=== PATIENT | female | born 1995 | race Caucasian/White ===

== ENCOUNTER 2021-10-27 09:16 | Emergency (ER) | payer MEDICAID, SELFPAY ==
[2021-10-27 10:21] VITALS: BP 136/80; PULSE 70; RESP 17; TEMP 36.1; O2SAT 98; BMI 35.2
[2021-10-27 10:53] LABS: MANUAL DIFF FLAG NO
[2021-10-27 10:54] LABS: Basophils Percent Auto 0.4 % (0-2); Eosinophils Absolute Auto 0.1 X10*3/uL (0.0-0.4); Eosinophils Percent Auto 2.7 % (0-4); Hematocrit 37.7 % (37.0-47.0); Hemoglobin 12.4 g/dl (12.0-16.0); Imm Gran Abs Auto 0.01 X10*3/uL (0.00-0.03); Imm Gran Pct Auto 0.2 % (0.0-0.4); Lymphocytes Absolute Auto 1.5 X10*3/uL (1.2-4.9); Lymphocytes Percent Auto 29.1 % (20-40); Mean Corpuscular HGB Conc 32.9 g/dl (31.0-35.0); Mean Corpuscular Hemoglobin 27.9 pg (27.0-33.0); Mean Corpuscular Volume 84.7 fL (80.0-98.0); Mean Platelet Volume 12.2 fL (9.4-12.3); Monocytes Absolute Auto 0.4 X10*3/uL (0.1-1.2); Monocytes Percent Auto 8.2 % (2-11); Neutrophils Percent Auto 59.4 % (45-73); Platelet Count 164 X10*3/uL (160-400); Red Blood Count 4.45 X10*6/uL (4.20-5.50); Red Cell Distribution Width 12.5 % (11.0-16.0); White Blood Count 5.1 X10*3/uL (4.8-10.8)
[2021-10-27 10:55] LABS: Appearance Urine CLEAR; Glucose Urine UA NEG (NEG); Leukocyte Esterase Urine 1+ (NEG); Nitrite Urine NEG (NEG); PH 6.5 (5.0-8.0); UACC Culture Trigger YES; Urine Blood TRACE (NEG); Urine Ketones NEG (NEG); Urine Protein NEG (NEG-TRACE)
[2021-10-27 10:56] LABS: UPreg QC Valid YES; Urine Pregnancy NEGATIVE (NEGATIVE)
[2021-10-27 10:57] LABS: Color Urine YELLOW
[2021-10-27 11:03] LABS: Bacteria Urine 2+ /LPF; Squamous Epithelial Cell Urine 3+ /LPF
[2021-10-27 11:04] LABS: RBC Urine 0-2 /HPF (0)
[2021-10-27 11:11] LABS: Anion Gap 9 (12-20); Blood Urea Nitrogen 5 mg/dL (9-16); Calcium 8.8 mg/dL (8.4-10.2); Carbon Dioxide 29 mmol/L (22-29); Chloride 104 mmol/L (96-108); Creatinine Clr Calc Pharmacy 168.5; Estimated Glomerular Filt Rate > 60; Glucose Random 97 mg/dL (60-115); Sodium 138 mmol/L (135-145)
[2021-10-27 12:00] VITALS: BP 121/82; PULSE 63; RESP 18; TEMP 36.7; O2SAT 99
--- NOTE | 2021-10-27 13:42 | ED.GENADULT ---
HPI - General Adult General Chief complaint: Abdominal Pain Stated complaint: Ovarian pain 4x days Time Seen by Provider: 10/27/21 11:36 Source: patient Mode of arrival: ambulatory Limitations: no limitations History of Present Illness HPI narrative: Patient comes emergency room complaining of 4 days of suprapubic pressure and dysuria. Patient denies hematuria, no fever or chills, no flank pain. Patient complaining of occasional nausea, no vomiting or diarrhea. Related Data Previous Rx's Medication Instructions Recorded phenazopyridine 100 mg tablet 100 mg PO TID 6 doses #6 tabs 10/27/21 sulfamethoxazole 800 1 tab PO BID #5 tabs 10/27/21 mg-trimethoprim 160 mg tablet (Bactrim DS) Allergies Allergy/AdvReac Type Severity Reaction Status Date / Time No Known Allergies Allergy Unverified 01/04/20 16:18 [No Known Allergies*] Review of Systems Review of Systems: Constitutional : No Weight loss, No Fever, No Chills, No Night Sweats, No Fatigue, No Malaise ENT/Mouth : No Hearing loss, No Ear Pain, No Nasal Congestion, No Sinus Pain, No Hoarseness, No sore throat, No Rhinorrhea, No Swallowing Difficulty Eyes: No Eye Pain, No Swelling, No Redness, No Foreign Body, No Discharge, No Vision Changes Cardiovascular : No Chest Pain, No SOB, No Dyspnea on Exertion, No Orthopnea, No Edema, No Palpitations Respiratory : No Cough, No Sputum, No Wheezing, No Smoke Exposure, No Dyspnea Gastrointestinal : No Nausea, No Vomiting, No Diarrhea, No Constipation, complaining of suprapubic discomfort, worse with urination. No Hematochezia, No Melena Genitourinary : no irregular bleeding, complaining of Dysuria, No Urinary Frequency, No Hematuria, No Urinary Incontinence, No Urgency, No Flank Pain, No Urinary Flow Changes, No Hesitancy Musculoskeletal : No joint pain, No Myalgias, No Joint Swelling Skin : No Skin Lesions, No rash Neuro : No Weakness, No Numbness, No Paresthesias, No Loss of Consciousness, No Dizziness, No Headache Psych : No Anxiety/Panic, No Depression, No SI/HI/AH/VH, No Social Issues, Heme/Lymph: No Bruising, No Bleeding,No Lymphadenopathy Endocrine : No Polyuria, No Polydipsia, No Temperature Intolerance Physical Exam ED Vital Signs: Vital Signs - 24 hr 10/27/21 10:21 Temperature 97 F Pulse Rate 70 Respiratory Rate 17 Blood Pressure 136/80 Pulse Oximetry 98 Oxygen Delivery Method Room Air BMI result Body Mass Index 35.2 Const Other: Appearance: Alert. Oriented X3. No acute distress. Eyes: Pupils equal, round and reactive to light. ENT: Pharynx normal. Neck: Normal inspection. Neck supple. No lymph nodes noted. No crepitus CVS: Normal heart rate and rhythm. Pulses normal. Normal S1 and S2 Respiratory: No respiratory distress. Breath sounds normal. No Wheezing. No rales Abdomen: Soft no rigidity, no distention, mild suprapubic discomfort on deep palpation Back: No CVA tenderness Skin: Skin warm and dry. Normal skin color. Normal skin turgor. Extremities: No lower extremity edema. No Lacerations. No Rash Neuro: Oriented X 3. No motor deficit. No sensory deficit. Moving all extremities. No slurred speech. CN 2 through 12 grossly intact Psych: calm, cooperative, normal affect Course Course Course Narrative: Patient has no fever or chills, no flank pain, white blood cell count within normal limits. Patient does have a UTI. test is negative. Patient was given the 1st dose of Bactrim and phenazopyridine in the ED. Medical Decision Making Lab Data Result diagrams: 10/27/21 10:47 10/27/21 10:47 Labs: Lab Results 10/27/21 10/27/21 10/27/21 Range/Units 10:47 10:47 10:47 WBC 5.1 (4.8-10.8) X10*3/uL RBC 4.45 (4.20-5.50) X10*6/uL Hgb 12.4 (12.0-16.0) g/dl Hct 37.7 (37.0-47.0) % MCV 84.7 (80.0-98.0) fL MCH 27.9 (27.0-33.0) pg MCHC 32.9 (31.0-35.0) g/dl RDW 12.5 (11.0-16.0) % Plt Count 164 (160-400) X10*3/uL MPV 12.2 (9.4-12.3) fL Immature Gran % (Auto) 0.2 (0.0-0.4) % Neut % (Auto) 59.4 (45-73) % Lymph % (Auto) 29.1 (20-40) % [place] % (Auto) 8.2 (2-11) % Eos % (Auto) 2.7 (0-4) % Baso % (Auto) 0.4 (0-2) % Lymph # (Auto) 1.5 (1.2-4.9) X10*3/uL [place] # (Auto) 0.4 (0.1-1.2) X10*3/uL Eos # (Auto) 0.1 (0.0-0.4) X10*3/uL Baso # (Auto) 0.0 (0.0-0.2) X10*3/uL Abs Immat Gran (auto) 0.01 (0.00-0.03) X10*3/uL Absolute Neuts (auto) 3.0 (2.0-8.3) x10*3/uL Absolute Nucleated RBC 0.000 (0.0-0.012) X10*3/uL Nucleated RBC % (auto) 0.0 (0.0-0.2) /100WBC Sodium 138 (135-145) mmol/L Potassium 4.0 (3.3-5.1) mmol/L Chloride 104 (96-108) mmol/L Carbon Dioxide 29 (22-29) mmol/L Anion Gap 9 L (12-20) BUN 5 L (9-16) mg/dL Creatinine 0.59 (0.5-1.4) mg/dL Estim Creat Clear Calc 168.5 Estimated GFR > 60 Random Glucose 97 (60-115) mg/dL Calcium 8.8 (8.4-10.2) mg/dL Urine Color YELLOW Urine Appearance CLEAR Urine pH 6.5 (5.0-8.0) Ur Specific [place] 1.010 (1.005-1.025) Urine Protein NEG (NEG-TRACE) MG/DL Urine Glucose (UA) NEG (NEG) MG/DL Urine Ketones NEG (NEG) MG/DL Urine Blood TRACE (NEG) Urine Nitrite NEG (NEG) Ur Leukocyte Esterase 1+ H (NEG) Urine RBC 0-2 (0) /HPF Urine WBC 5-9 H (0-4) /HPF Ur Squamous Epith Cells 3+ /LPF Urine Bacteria 2+ /LPF Urine Test (NEGATIVE) 10/27/21 Range/Units 10:47 WBC (4.8-10.8) X10*3/uL RBC (4.20-5.50) X10*6/uL Hgb (12.0-16.0) g/dl Hct (37.0-47.0) % MCV (80.0-98.0) fL MCH (27.0-33.0) pg MCHC (31.0-35.0) g/dl RDW (11.0-16.0) % Plt Count (160-400) X10*3/uL MPV (9.4-12.3) fL Immature Gran % (Auto) (0.0-0.4) % Neut % (Auto) (45-73) % Lymph % (Auto) (20-40) % [place] % (Auto) (2-11) % Eos % (Auto) (0-4) % Baso % (Auto) (0-2) % Lymph # (Auto) (1.2-4.9) X10*3/uL [place] # (Auto) (0.1-1.2) X10*3/uL Eos # (Auto) (0.0-0.4) X10*3/uL Baso # (Auto) (0.0-0.2) X10*3/uL Abs Immat Gran (auto) (0.00-0.03) X10*3/uL Absolute Neuts (auto) (2.0-8.3) x10*3/uL Absolute Nucleated RBC (0.0-0.012) X10*3/uL Nucleated RBC % (auto) (0.0-0.2) /100WBC Sodium (135-145) mmol/L Potassium (3.3-5.1) mmol/L Chloride (96-108) mmol/L Carbon Dioxide (22-29) mmol/L Anion Gap (12-20) BUN (9-16) mg/dL Creatinine (0.5-1.4) mg/dL Estim Creat Clear Calc Estimated GFR Random Glucose (60-115) mg/dL Calcium (8.4-10.2) mg/dL Urine Color Urine Appearance Urine pH (5.0-8.0) Ur Specific [place] (1.005-1.025) Urine Protein (NEG-TRACE) MG/DL Urine Glucose (UA) (NEG) MG/DL Urine Ketones (NEG) MG/DL Urine Blood (NEG) Urine Nitrite (NEG) Ur Leukocyte Esterase (NEG) Urine RBC (0) /HPF Urine WBC (0-4) /HPF Ur Squamous Epith Cells /LPF Urine Bacteria /LPF Urine Test NEGATIVE (NEGATIVE) Discharge Plan Discharge Clinical Impression: Urinary tract infection Patient Disposition: Home, Self-Care Instructions: Urinary Tract Infection in Women (ED) Additional Instructions: Please follow-up with your primary care physician tomorrow. If you have any worsening or new symptoms, please return to the emergency room or call 911 Prescriptions: New sulfamethoxazole-trimethoprim [Bactrim DS] 800-160 mg tablet 1 tab PO BID Qty: 5 0RF phenazopyridine 100 mg tablet 100 mg PO TID Qty: 6 0RF
[2021-10-27] MEDS: Phenazopyridine HCL 100 MG TABLET PO (13:58)
== END 2021-10-27 14:20 | disposition home or self-care (01) ==
PROVIDERS: Emergency Provider Emergency Medicine; PCP Internal Medicine
DX: N39.0 Urinary tract infection, site not specified (principal); N94.89 Other specified conditions associated with female genital organs and menstrual cycle; R30.0 Dysuria; Z79.899 Other long term (current) drug therapy
CPT/HCPCS: 36415; 80048; 81001; 81025; 85025; 87086; 99283; 99284

== ENCOUNTER 2022-08-12 08:31 | Emergency (ER) | payer MEDICAID, SELFPAY ==
--- NOTE | ~2022-08-12 | XR_ITS ---
EXAMINATION: XR FOOT, LEFT CLINICAL INFORMATION: Crush injury COMPARISON: None available. TECHNIQUE: AP, lateral, and oblique views of the left foot. FINDINGS: No fracture, dislocation or destructive process. There is dorsal soft tissue swelling. XR/XR foot LT 2V IMPRESSION: No underlying osseous abnormality.
[2022-08-12 08:49] VITALS: BP 133/77; PULSE 74; RESP 16; TEMP 36.3; O2SAT 98; BMI 32.3
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
--- OUTSIDE RECORDS SUMMARY | 2022-08-12 09:33 | XMS_ITS | Continuity of Care Document ---
Author Name Unknown Organization [facility] Address [address] [place] [address]- Care Team Providers Care Fire Supervisor Name Role Phone Heath GOULD, Radames Villarreal Primary Care Physician [place] [facility] [place]/22 [facility] [address] [place] [id number]- Attending Physician: Jordan Wise MD Admitting Physician: Jordan Wise MD Referring Physician: Anupama Vaughn Allergies, Adverse Reactions, Alerts No Known Allergies Medications acetaminophen 325 mg oral tablet 650 mg, By Mouth, Every 4 hours, PRN, (1-3), may give 325mg per patient preference and re-dose [id number] within 4 hours, if needed. Patient should only receive a total of 650mg of Acetaminophen every 4 hours., Refills 0, Maintenance, Pain , Mild, 1... Start Date: 03/18/20 Status: Ordered Buprenorphine = 12 mg, Sublingual, Daily, 0 Refills, Maintenance, 03/17/20 4:48:00 EST, Partial fill upon patientrequest Start Date: 03/17/20 Status: Ordered Docusate Sodium Capsule 100 mg, 1, capsule, By Mouth, 2 times a day, Refills 0, Maintenance, 03/18/20 6:49:00 EST, Partial fill upon patient request Start Date: 03/18/20 Status: Ordered gabapentin 400 mg oral capsule 400 mg, 1, capsule, By Mouth, 3 times a day, # 30 capsule, Refills 0, Maintenance, 02/09/19 9:21:51EDT Start Date: 02/09/19 Status: Ordered ibuprofen 800 mg oral tablet 800 mg, 1, tablet, By Mouth, Every 8 hours, PRN, (4-6), may give 400mg per patient preference and re-dose with 400mg within 8 hours if needed. Patient should only receive a total of 800mg of Ibuprofen every 8 hours., Refills 0, Maintenance, Pain , M... 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 Active Obese class I Confirmed Active Lumbar herniated disc Confirmed Active Vital Signs Most recent to oldest [Reference Range]: 1 Height 168 cm (03/23/22 3:58 PM) Weight 90.72 kg (03/23/22 3:58 PM) Oxygen Saturation [94-100 %] 98 % (03/23/22 3:58 PM) Pulse Rate [55-90 bpm] 77 bpm (03/23/22 3:58 PM) Body Mass Index [18.5-24.99 kg/m2] 32.14 kg/m2 *>HHI* (03/23/22 3:58 PM) Blood Pressure [90-138/55-84 mm Hg] 112/ 72mm Hg (03/23/22 3:58 PM) Mode of Delivery (Oxygen) Room air (03/23/22 3:58 PM) Blood pressure sites Arm, right (03/23/22 3:58 PM) Weight Obtained Via Patient/family state d (03/23/22 3:58 PM) Social History Social History Type Response Smoking Status Never smoker entered on: 10/21/14 Sex Patient Care team information Care Team Personnel Name: Radames Joe MD Position: [facility] Physician (General Medicine) Member Role: PCP Address: Address: [address] [place] [address], [address] [facility] [place] [address]- Care Team Related Persons Name: HARDIK GARCIA Address: [address] [place] [address] Name: JIMMY MEDELLIN Address: [place] Address: [address]
--- OUTSIDE RECORDS SUMMARY | 2022-08-12 09:33 | XMS_ITS | Continuity of Care Document ---
Author Name Unknown Organization [facility] Address [address] [place] [address]- Care Team Providers Care Hog Counter Name Role Phone Heath GOULD, Radames Villarreal Primary Care Physician [phone] [place] [facility] [place]23[place]22 - 04/22/22 [facility] [address] [place] [phone]- Attending Physician: Talib Martines Admitting Physician: Talib Martines Referring Physician: trTalib Allergies, Adverse Reactions, Alerts No Known Allergies Medications acetaminophen 325 mg oral tablet 650 mg, By Mouth, Every 4 hours, PRN, (1-3), may give 325mg per patient preference and re-dose [id number] within 4 hours, if needed. Patient should [...] Confirmed Active Lumbar herniated disc Confirmed Active Social History Social History Type Response Smoking Status Never smoker entered on: 10/21/14 Sex Patient Care team information Care Team Personnel Name: Heath GOULD, Radames Villarreal Position: [facility] Physician (General Medicine) Member Role: PCP Address: Address: [address] [place] [address], [address] [facility] [place] [address]- Care Team Related Persons Name: HARDIK GARCIA Address: home [address] [place] [address] Name: JIMMY MEDELLIN Address: [employer] Address: home [address] [place] [address]
== END 2022-08-12 10:17 | disposition home or self-care (01) ==
PROVIDERS: Emergency Provider Emergency Medicine
DX: M72.2 Plantar fascial fibromatosis (principal); M79.672 Pain in left foot; Z79.899 Other long term (current) drug therapy
CPT/HCPCS: 73620; 99282; 99283

== ENCOUNTER 2023-02-27 10:55 | Emergency (ER) | payer MEDICAID, SELFPAY ==
[2023-02-27 10:58] VITALS: BP 110/60; PULSE 56; RESP 17; TEMP 36.3; O2SAT 99; BMI 32.0
--- NOTE | 2023-02-27 11:03 | ED_ITS ---
HPI - URI/Sore Throat General Chief Complaint: Upper Respiratory Symptoms Stated Complaint: sore throat Time Seen by Provider: 02/27/23 11:06 Source: patient Mode of arrival: ambulatory Limitations: no limitations History of Present Illness HPI Narrative: Patient is a 28-year-old female who presents emergency department for evaluation of sore throat. Onset was 1 week ago progressively worsening, has associated dry nonproductive cough. Denies fevers, chills, inability to swallow, neck pain, stiffness, headache, ear pain, chest pain. Related Data Previous Rx's Medication Instructions Recorded phenazopyridine 100 mg tablet 100 mg PO TID 6 doses #6 tabs 10/27/21 sulfamethoxazole 800 1 tab PO BID #5 tabs 10/27/21 mg-trimethoprim 160 mg tablet (Bactrim DS) amoxicillin 500 mg capsule 500 mg PO BID #20 caps 02/27/23 Allergies Allergy/AdvReac Type Severity Reaction Status Date / Time No Known Allergies Allergy Unverified 01/04/20 16:18 [No Known Allergies*] Review of Systems Review of Systems: Yes all other systems are reviewed and are negative [facility] Past Medical History Attestation statement: The following information was validated with the patient. Source: old records reviewed Social History Social History Advance Directives: No Advance Directives Information Provided: No Physical Exam Vital Signs: Vital Signs: Last Vital Signs Temp 97.4 F 02/27/23 10:58 Pulse 56 02/27/23 10:58 Resp 17 02/27/23 10:58 BP 110/60 02/27/23 10:58 Pulse Ox 99 02/27/23 10:58 O2 Del Method Room Air 02/27/23 10:58 BMI result Body Mass Index 32.0 Appearance: Alert.?Oriented to person, place and time. No acute distress.?Normal affect. Eyes: Pupils equal, round and reactive to light.? ENT: TM normal bilaterally. Pharynx Erythematous 1+ tonsillar hypertrophy b ilaterally with exudate, uvula midline, no trismus, no drooling?? Neck: Normal inspection.? Neck supple.?? positive cervical adenopathy CVS: Heart sounds normal. Normal heart rate and rhythm.? Pulses normal.?? Respiratory: No respiratory distress.? Lung sounds clear to auscultation bilaterally?? Abdomen: Soft and non-tender. Normoactive bowel sounds. Skin: Skin warm and dry.? Normal skin color.? ? Extremities: No lower extremity edema.? Neuro: Moves all extremities spontaneously. Sensation intact bilaterally. No motor deficits. Ambulates with normal steady gait. Course Course Course Narrative: This is a rapid medical exam. Deferred additional HPI, ROS, PE to primary provider. 28 yo previously healthy here with complaints of sore throat x 1 week. Will send covid/strep testing. VSS Medical Decision Making Medical Decision Making [facility] Narrative: patient is a 28-year-old female who presents emergency department for evaluation of sore throat and dry nonproductive cough as per HPI. At the time examination overall she is well-appearing, nontoxic, afebrile. And secretions, respiratory if the not consistent a for abscess. Not consistent with Lauri's angina. COVID- 19 any strep a testing are negative, reviewed these findings wit h patient, Plan to treat pharyngitis and advised outpatient follow-up with primary care provider, discussed for etiology of persistent cough and sore throat including allergic rhinitis, postnasal drip, GERD. reviewed worrisome signs and symptoms that would warrant re-evaluation in the emergency department. All questions answered. Stable for discharge. Differential Diagnosis Differential Diagnoses: The differential diagnosis associated with the presentation includes ( as noted above) Lab Data [facility] Lab Attestation statement: I reviewed the patient's lab results. ( as noted above) Labs: Lab Results 02/27/23 Range/Units 11:06 COVID-19 (STEVEN) Negative (Negative) COVID-19 Clin Com See Note Independent Historian Clinical information obtained from an independent historian. History obtained from or confirmed by: Spouse ( present at bedside who confirms history) External Record Review External record reviewed: Outpatient record Prescription Management I considered prescription management with: Antibiotic Discharge Plan Discharge Clinical Impression: Pharyngitis Patient Disposition: Home, Self-Care Instructions: Pharyngitis (ED) Prescriptions: New amoxicillin 500 mg capsule 500 mg PO BID Qty: 20 0RF No Action sulfamethoxazole-trimethoprim [Bactrim DS] 800-160 mg tablet 1 tab PO BID Qty: 5 0RF phenazopyridine 100 mg tablet 100 mg PO TID Qty: 6 0RF Referrals: Radames Joe MD [Primary Care Provider] -
[2023-02-27 11:23] LABS: COVID-19 Test Negative (Negative); IDNOW Serial# BCCEAD1C
[2023-02-27 11:24] LABS: IDNOW Serial# 08D9AD1C; Strep A Nucleic Acid Negative (Negative)
== END 2023-02-27 11:46 | disposition home or self-care (01) ==
PROVIDERS: Nurse Practitioner Family; Emergency Provider Emergency Medicine Emergency Medical Services; PCP Internal Medicine
DX: J02.9 Acute pharyngitis, unspecified (principal); Z11.52 Encounter for screening for COVID-19
CPT/HCPCS: 87635; 87651; 99283

== ENCOUNTER 2023-04-27 09:53 | Emergency (ER) | payer MEDICAID, SELFPAY ==
[2023-04-27 10:12] VITALS: BP 119/59; PULSE 78; RESP 19; TEMP 36.6; O2SAT 98; BMI 35.2
--- NOTE | 2023-04-27 15:07 | ED_ITS ---
HPI - Back Pain/Injury General Chief Complaint: Back Pain/Injury Stated Complaint: ? Eye Infection Back Spasms Time Seen by Provider: 04/27/23 14:57 Source: patient Mode of arrival: ambulatory Limitations: no limitations History of Present Illness HPI Narrative: 28-year-old female who presents emergency department for evaluation of 2 separate chief complaints. First complaint is lower back pain. Patient states she has herniated and bulging disc in her lower back and has chronic pain. She states that she is chronic numbness in her right leg. She states that over the last 5 days the pain is gotten progressively worse, she describes it as a dull ache which is 8/10. Patient is on gabapentin 800 mg b.i.d. she states she doubled up on her gabapentin which did not relieve her pain. She also is on Suboxone. She states that when she gets a flare-up like this sometimes tramadol helps. She denied fever, chills, new weakness, loss of bowel or bladder control. Second chief complaint is bilateral crusting of her eyes. Patient states that over the past 2 days she has been waking up with her eyes crusted shut and discharge from both eyes. She denied fever, chills, rhinorrhea, sore throat, cough for your pain. Related Data Previous Rx's Medication Instructions Recorded phenazopyridine 100 mg tablet 100 mg PO TID 6 doses #6 tabs 10/27/21 sulfamethoxazole 800 1 tab PO BID #5 tabs 10/27/21 mg-trimethoprim 160 mg tablet (Bactrim DS) amoxicillin 500 mg capsule 500 mg PO BID #20 caps 02/27/23 cyclobenzaprine 10 mg tablet 10 mg PO TID PRN pain, muscle 04/27/23 spasm #15 tabs erythromycin 5 mg/gram (0.5 %) eye 0.5 inch ophthalmic (eye) TID 7 04/27/23 ointment days #3.5 grams tramadol 50 mg tablet 50 mg PO TID PRN pain 3 days #10 04/27/23 tabs Allergies Allergy/AdvReac Type Severity Reaction Status Date / Time No Known Allergies Allergy Verified 04/27/23 10:12 [No Known Allergies*] Review of Systems Review of Systems: Yes all other systems are reviewed and are negative [facility] Past Medical History Attestation statement: The following information was validated with the patient. Onset Date is defined in the Problem List Problems that require an onset date and time if occurred within 24 hrs of arrival to the ED Aortic Dissection and Rupture; Neurologic impairment; Cardiopulmonary Arrest; Endotracheal Intubation; Insertion or Replacement of Mechanical Circulatory Assist Device Social History Social History Advance Directives: No Physical Exam Vital Signs: Vital Signs: Last Vital Signs Temp 98 F 04/27/23 10:12 Pulse 78 04/27/23 10:12 Resp 19 04/27/23 10:12 BP 119/59 L 04/27/23 10:12 Pulse Ox 98 04/27/23 10:12 O2 Del Method Room Air 04/27/23 10:12 BMI result Body Mass Index 35.2 Vital signs were normal Exam: General: Awake, alert in no distress Head: Normocephalic, atraumatic EENT: PERRL, Lids normal, patient does have yellow crusty material on her eyelashes, conjunctiva are injected and appeared inflamed, sclera are normal. Neck: Supple, no adenopathy, Chest: symmetric movement, nontender Heart: regular rate and rhythm, normal S1, S2 no murmurs or rubs Abdomen: soft, non-tender, nondistended, normal bowel sounds Back: Patient has tenderness palpation over her paraspinal muscles in the lumbar sacral area as well as her vertebrae in the lumbar sacral area diffusely, negative straight leg raises bilaterally Extremities: no deformities, moves all extremities symmetrically with normal strength Skin: no rashes, no lesion, normal color and warmth Neuro: Awake, alert, oriented, normal speech, cranial nerves intact, moves all extremities symmetrically Medical Decision Making Medical Decision Making MDM Narrative: 28-year-old female with a history of chronic lower back pain on gabapentin and Suboxone presents emergency department for evaluation of increased back pain x5 days as well as symptoms consistent with bilateral conjunctivitis. Patient's neurologic exam did not reveal any focal deficits. Patient will be treated with tramadol 50 mg 3 times a day as needed for pain and cyclobenzaprine 10 mg 3 times a day as needed for pain and spasm She was also given erythromycin optic ointment t.i.d. to both eyes for 7 days to treat her conjunctivitis Differential Diagnosis Differential Diagnoses: The differential diagnosis associated with the presentation includes Differential diagnosis includes disc disease, arthritis, infectious process, musculoskeletal injury Discharge Plan Discharge Clinical Impression: Strain of lumbar region Qualifiers: Encounter type: initial encounter Qualified Code(s): S39.012A - Strain of muscle, fascia and tendon of lower back, initial encounter Acute conjunctivitis of both eyes Qualifiers: Acute conjunctivitis type: unspecified Qualified Code(s): H10.33 - Unspecified acute conjunctivitis, bilateral Patient Disposition: Home, Self-Care Instructions: Acute Low Back Pain (ED), Conjunctivitis (ED) Additional Instructions: Use erythromycin ointment to both eyes 3 times a day for 1 week. Take tramadol 50 mg pills, take 1 pill every 6 hours as needed for pain. This is a narcotic medication and if your concerned about addiction, do not get this prescription filled or you can ask the pharmacist for less pills than prescribed. Take Flexeril (cyclobenzaprine) 10 mg pills, 1 pill every 6-8 hours as needed for pain or spasm. ?This medication will make you sleepy. ?Do not drive or work while taking this medication. Follow-up with your doctor in 2 days. Please return to the emergency department if your symptoms get worse or if you d evelop any symptoms that are concerning to you. Prescriptions: New cyclobenzaprine 10 mg tablet 10 mg PO TID PRN (Reason: pain, muscle spasm) Qty: 15 0RF erythromycin 5 mg/gram (0.5 %) ointment 0.5 inch ophthalmic (eye) TID 7 Days Qty: 3.5 0RF tramadol 50 mg tablet 50 mg PO TID PRN (Reason: pain) 3 Days Qty: 10 0RF Rx Instructions: Patient may request partial fill No Action sulfamethoxazole-trimethoprim [Bactrim DS] 800-160 mg tablet 1 tab PO BID Qty: 5 0RF phenazopyridine 100 mg tablet 100 mg PO TID Qty: 6 0RF amoxicillin 500 mg capsule 500 mg PO BID Qty: 20 0RF
== END 2023-04-27 15:35 | disposition home or self-care (01) ==
PROVIDERS: Emergency Provider Emergency Medicine Emergency Medical Services; PCP Internal Medicine
DX: S39.012A Strain of muscle, fascia and tendon of lower back, initial encounter (principal); H10.33 Unspecified acute conjunctivitis, bilateral; X58.XXXA Exposure to other specified factors, initial encounter; Y93.9 Activity, unspecified; Y92.9 Unspecified place or not applicable; Y99.9 Unspecified external cause status
CPT/HCPCS: 99283

== ENCOUNTER 2024-05-22 10:22 | Emergency (ER) | payer OTHER, SELFPAY ==
--- NOTE | ~2024-05-22 | XR_ITS ---
EXAMINATION: XR SHOULDER, RIGHT CLINICAL INFORMATION: pain COMPARISON: June 29, 2018. TECHNIQUE: AP external rotation, Grashey, scapular Y, and axillary views of the right shoulder. FINDINGS: No acute cortical disruption or malalignment. No lytic or blastic lesions. No metallic or radiopaque foreign body. No subcutaneous emphysema. XR/XR shoulder RT min 2V IMPRESSION: No acute fracture or dislocation. No gross degenerative changes. Electronically signed by: Vik Cesar MD 05/22/2024 11:12 AM [facility]
[2024-05-22 10:36] VITALS: BP 123/49; PULSE 59; RESP 16; TEMP 36.5; O2SAT 98; BMI 33.2
--- NOTE | 2024-05-22 11:57 | ECG_ITS ---
Test Reason : CP Blood Pressure : */* mmHG Vent. Rate : 51 BPM Atrial Rate : 51 BPM P-R Int : 142 ms QRS Dur : 88 ms QT Int : 430 ms P-R-T Axes : 36 28 13 degrees QTcB Int : 396 ms Sinus bradycardia Otherwise normal ECG No previous ECGs available Referred By: Nubia Wolf Electronically Signed By: Wes Duarte
--- NOTE | 2024-05-22 11:57 | ED.EXTPRO ---
HPI - Extremity Problem General Chief complaint: Extremity Injury, Upper Stated complaint: R shoulder pain Time Seen by Provider: 05/22/24 11:57 Source: patient, RN notes reviewed and old records reviewed Mode of arrival: ambulatory History of Present Illness ED Provider: Nubia Wolf PA-C HPI Narrative: 29-year-old female no significant past medical history presenting to the ED complaining of her right shoulder pain S/P helping carry/move table [employer]. Reports pulling mechanism with associated numbness/tingling radiating down RU E and to neck. Denies direct injury, trauma, fall, CP/SOB, nausea/vomiting. Took Motrin without relief Related Data Previous Rx's ?Medication ?Instructions ?Recorded phenazopyridine 100 mg tablet 100 mg PO TID 6 doses #6 tabs 10/27/21 sulfamethoxazole 800 1 tab PO BID #5 tabs 10/27/21 mg-trimethoprim 160 mg tablet (Bactrim DS) amoxicillin 500 mg capsule 500 mg PO BID #20 caps 02/27/23 cyclobenzaprine 10 mg tablet 10 mg PO TID PRN pain, muscle 04/27/23 spasm #15 tabs erythromycin 5 mg/gram (0.5 %) eye 0.5 inch ophthalmic (eye) TID 7 04/27/23 ointment days #3.5 grams tramadol 50 mg tablet 50 mg PO TID PRN pain 3 days #10 04/27/23 tabs acetaminophen 500 mg tablet 500 mg PO Q6H PRN fever or pain 05/22/24 (Tylenol Extra Strength) #14 tabs cyclobenzaprine 5 mg tablet 5 mg PO Q8H PRN pain (scale score 05/22/24 7-10) 5 days #14 tabs lidocaine 5 % topical patch 1 patch topical DAILY PRN pain #30 05/22/24 (Lidoderm) ea naproxen 500 mg tablet 500 mg PO BID PRN pain 10 days #20 05/22/24 tabs Allergies Allergy/AdvReac Type Severity Reaction Status Date / Time No Known Allergies Allergy Verified 05/22/24 10:37 [No Known Allergies*] Review of Systems Review of Systems: Yes all other systems are reviewed and are negative Constitutional: Constitutional: Reports as per [facility] Past Medical History Attestation statement: The following information was validated with the patient. Source: old records reviewed Social History Social History Advance Directives: No Advance Directives Information Provided: Yes Do you have a plan to hurt others: No Plan Physical Exam Vital Signs: Vital Signs: Last Vital Signs Temp 97.7 F 05/22/24 12:21 Pulse 59 05/22/24 12:21 Resp 16 05/22/24 12:21 BP 123/49 L 05/22/24 12:21 Pulse Ox 98 05/22/24 12:21 O2 Del Method Room Air 05/22/24 12:21 BMI result Body Mass Index 33.2 Const: General: cooperative, healthy appearing and no acute distress Orientation/consciousness: patient oriented x3 Limitations: no limitations HEENT: Head: Yes normal to inspection and Yes atraumatic Ears: hearing grossly normal bilaterally General nose exam: Normal external nose present Face and sinus: Yes normal facial exam Eyes: General: appearance normal, both eyes and all related structures EOM: EOMs intact bilaterally Neck: Neck: Yes normal visual inspection and Yes no meningeal signs Resp: Effort & Inspection: normal respiratory effort and no respiratory distress Cardio: Rate: regular rate Skin: Rashes: no rashes Wounds: no wounds Neuro: General: patient oriented x3, tone normal and no meningeal signs Cranial nerves: Yes CN's II-XII intact bilaterally Gait exam (Neuro): Normal gait present Extrem: Other: Right shoulder without appreciable deformity. Diffusely tender to palpation. Limited internal rotation secondary to pain. Clavicle nontender. Neurovascularly intact distally. Mild right-sided trapezius muscle reproducible tenderness. No meningeal signs. No neck stiffness General: Yes normal to inspection Course Course Course Narrative: XR shoulder RT min 2V IMPRESSION: No acute fracture or dislocation. No gross degenerative changes. Results discussed with patient including worrisome signs and symptoms and strict return precautions, and when to return to the emergency department. They verbalized understanding and feel safe for discharge at this time. Medical Decision Making Medical Decision Making MDM Narrative: 29-year-old female no significant past medical history presenting to the ED complaining of her right shoulder pain S/P helping carry/move table [employer]. On exam vital signs stable, NAD, nontoxic appearing, physical exam as noted above. Concern for MSK pain/strain vs rotator cuff injury vs bursitis. Unlikely fracture or ACS Plan: EKG, x-ray, pain management Please refer to course for remaining clinical decision making, interpretation of labs/imaging results, and discussions with consultants and/or family members. Differential Diagnosis Differential Diagnoses: The differential diagnosis associated with the presentation includes As above Independent Interpretation I performed an independent interpretation of an: EKG (My interpretation EKG sinus bradycardia rate of 51. UT interval 142. No previous to compare. No STEMI) and Plain X-Ray Radiology Impression Discussion of test interpretation with radiology: I have reviewed the radiologist's reading. External Record Review External record reviewed: Inpatient record, Office record, Outpatient record, Prior outpatient labs, Prior outpatient radiology, Primary care record and Outside ED record Tests considered The following testing was considered but not selected: As above Prescription Management I considered prescription management with: Pain Medication Chronic Conditions Patient?s care impacted by: Other Social Determinants Patient?s care significantly limited by Social Determinants of Health including: Other Social Determinant of Health Discharge Plan Discharge Clinical Impression: Acute shoulder pain Patient Disposition: Home, Self-Care Instructions: Shoulder Pain (ED) Additional Instructions: Your x-rays unremarkable Your pain is likely musculoskeletal Flexeril is a muscle relaxer, take at night as it makes you drowsy, do not drive, drink alcohol, or operate machinery while taking it Naproxen as an anti-inflammatory / pain medication, take with food Lidoderm patches are numbing patches, apply to painful area In addition take Tylenol at home If symptoms persist or worsen, pain becomes unbearable, you developed urinary retention or incontinence, or weakness return to the ED Prescriptions: New acetaminophen [Tylenol Extra Strength] 500 mg tablet 500 mg PO Q6H PRN (Reason: fever or pain) Qty: 14 0RF lidocaine [Lidoderm] 5 % adhesive patch,medicated 1 patch topical DAILY MDD remove after 12 hours PRN (Reason: pain) Qty: 30 0RF Rx Instructions: leave on most painful area for up to 12 hrs naproxen 500 mg tablet 500 mg PO BID PRN (Reason: pain) 10 Days Qty: 20 0RF cyclobenzaprine 5 mg tablet 5 mg PO Q8H PRN (Reason: pain (scale score 7-10)) 5 Days Qty: 14 0RF No Action sulfamethoxazole-trimethoprim [Bactrim DS] 800-160 mg tablet 1 tab PO BID Qty: 5 0RF phenazopyridine 100 mg tablet 100 mg PO TID Qty: 6 0RF amoxicillin 500 mg capsule 500 mg PO BID Qty: 20 0RF cyclobenzaprine 10 mg tablet 10 mg PO TID PRN (Reason: pain, muscle spasm) Qty: 15 0RF erythromycin 5 mg/gram (0.5 %) ointment 0.5 inch ophthalmic (eye) TID 7 Days Qty: 3.5 0RF tramadol 50 mg tablet 50 mg PO TID PRN (Reason: pain) 3 Days Qty: 10 0RF Rx Instructions: Patient may request partial fill Referrals: [facility] [place] [facility] [Provider Group] - 1 week Radames Joe MD [Primary Care Provider] - Stand Alone Forms: Work/School Release Interventions: ED Discharge Assessment Last Done: 05/22/24 12:21 Discharge Date/Time: 05/22/24 12:32 Print Language: Comoran
[2024-05-22 12:21] VITALS: BP 123/49; PULSE 59; RESP 16; TEMP 36.5; O2SAT 98
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
--- OUTSIDE RECORDS SUMMARY | 2024-05-22 13:41 | XMS_ITS | Clinical Summary ---
Author Organization [facility] Address [address] [place] [id number] Care Team Providers Care Public Information Relations Manager Name Role Phone Tara Edwards MD Primary Care Provider [phone] Allergies Active Allergy Reactions Criticality Noted Date Comments Carisoprodol Nausea And Vomiting 08/05/2015 Medications Medication Sig Dispensed Refills Start Date End Date Status cyclobenzaprine (FLEXERIL) 10 MG tablet Take 10 mg by mouth 3 (three) times a day as needed for muscle spasms. 0 Active gabapentin (NEURONTIN) 300 MG capsule Take 600 mg by mouth 3 (three) times a day. 0 10/21/2017 Active traMADol (ULTRAM) 50 MG tablet Take 50 mg by mouth every 6 (six) hours as needed for pain. 8 tablet 0 11/07/2017 Active ibuprofen (ADVIL,MOTRIN) 600 MG tablet Take 1 tablet (600 mg total) by mouth every 6 (six) hours as needed for pain. 30 tablet 0 11/07/2017 Active Family History Medical History Relation Name Comments Kidney disease Father Kidney disease Mother Relation Name Status Comments Father Mother Social History Tobacco Use Types Packs/Day Years Used Date Smoking Tobacco: Never Smokeless Tobacco: Never Alcohol Use Standard Drinks/Week Comments No 0 (1 standard drink = 0.6 oz pur e alcohol) Sex and Gender Information Value Date Recorded Sex Assigned at Not on file Gender Identity Not on file Sexual Orientation Not on file Last Filed Vital Signs Vital Sign Reading Time Taken Comments Blood Pressure 123/85 11/07/2017 2:59 PM EDT Pulse 83 11/07/2017 2:59 PM EDT Temperature 36.4 ??C (97.5 ??F) 11/07/2017 2:59 PM ED T Respiratory Rate 18 11/07/2017 2:59 PM EDT Oxygen Saturation 98% 11/07/2017 2:59 PM EDT Inhaled Oxygen Concentration - - Weight 81.6 kg (180 lb) 11/07/2017 2:59 PM EDT Height 167.6 cm (5' 6 ) 11/07/2017 2:59 PM EDT Body Mass Index 29.05 11/07/2017 2:59 PM EDT Plan of Treatment Health Maintenance Due Date Last Done Comments Hepatitis B Vaccines (1 of 3 - 3-dose series) 1993 Hepatitis C Screening 1993 COVID-19 Vaccine (#1) 1993 Depression Screening 2005 Preventative Health Evaluation 2011 DTap / Tdap / Td (1 - Tdap) 01/24/2012 Cervical Cancer Screening (P ap Smear) 2014 Influenza Vaccine (#1) 2023 Pneumococcal Vaccine Aged Out No long er eligible based on patient's age to complete this topic RSV Ped < 20 months Aged Out No longe r eligible based on patient's age to complete this topic Care Teams Public Information Relations Manager Relationship Specialty Start Date End Date Tara Edwards MD PCP - General Internal Medicine 11/07/17
== END 2024-05-22 12:32 | disposition home or self-care (01) ==
LOC: HO.ED 12:18
PROVIDERS: Emergency Provider Emergency Medicine; PCP Internal Medicine
DX: M25.511 Pain in right shoulder (principal); R07.89 Other chest pain; R00.1 Bradycardia, unspecified
CPT/HCPCS: 73030; 93005; 99282; 99283

== ENCOUNTER → 2024-05-22 11:00 | Outpatient (BNV) | payer MEDICAID, SELFPAY | PROVIDERS: PCP Internal Medicine; Visit Provider Radiology Diagnostic Radiology | DX: M25.511 Pain in right shoulder (principal) | CPT/HCPCS: 73030 ==

== ENCOUNTER 2024-06-19 13:42 | Emergency (ER) | payer OTHER, SELFPAY ==
--- NOTE | ~2024-06-19 | XR_ITS ---
EXAMINATION: XR FOOT, LEFT CLINICAL INFORMATION: great toe injury, pain COMPARISON: None available. TECHNIQUE: AP, lateral, and oblique views of the left foot. FINDINGS: The nondisplaced fracture proximal phalanx first digit with minimal soft tissue swelling. No additional bony abnormality seen. The soft tissues are normal. XR/XR foot LT min 3V IMPRESSION: Nondisplaced oblique fracture proximal phalanx first digit. Mild soft tissue swelling. Electronically signed by: Cr Conteh MD 06/19/2024 03:17 PM [facility]
[2024-06-19 14:49] VITALS: BP 118/78; PULSE 64; RESP 18; TEMP 36.9; O2SAT 97; BMI 32.0
--- NOTE | 2024-06-19 14:50 | ED_ITS ---
HPI - General Adult General Chief complaint: Extremity Injury, Lower Stated complaint: L great toe inj Time Seen by Provider: 06/19/24 15:45 Source: patient Mode of arrival: ambulatory Limitations: no limitations History of Present Illness ED Provider: Gwen Soliz PA-C HPI narrative: Patient is a 29 year old assigned female at with no reported medical history presenting to the emergency department today with left great toe pain. Patient states that on 06/18/2024 she kicked a door out of frustrating with her left foot, injuring her left great toe. Patient denies any dizziness, lightheadedness, abdominal pain, nausea, vomiting, fever, chills, blurry vision, double vision, loss of vision, chest pain, difficulty breathing, shortness of breath, back pain, night sweats, pain with urination, increased urinary frequency, increased urinary urgency, blood in her urine or stool, syncope or a near syncopal episode, bowel incontinence, bladder incontinence, or any other complaints at this time. Onset (ago): day(s) (1) Location: left and lower extremity Relieving factors: immobilization Exacerbating factors: movement Associated symptoms: denies other symptoms Treatments prior to arrival: none Related Data Previous Rx's ?Medication ?Instructions ?Recorded phenazopyridine 100 mg tablet 100 mg PO TID 6 doses #6 tabs 10/27/21 sulfamethoxazole 800 1 tab PO BID #5 tabs 10/27/21 mg-trimethoprim 160 mg tablet (Bactrim DS) amoxicillin 500 mg capsule 500 mg PO BID #20 caps 02/27/23 cyclobenzaprine 10 mg tablet 10 mg PO TID PRN pain, muscle 04/27/23 spasm #15 tabs erythromycin 5 mg/gram (0.5 %) eye 0.5 inch ophthalmic (eye) TID 7 04/27/23 ointment days #3.5 grams tramadol 50 mg tablet 50 mg PO TID PRN pain 3 days #10 04/27/23 tabs acetaminophen 500 mg tablet 500 mg PO Q6H PRN fever or pain 05/22/24 (Tylenol Extra Strength) #14 tabs cyclobenzaprine 5 mg tablet 5 mg PO Q8H PRN pain (scale score 05/22/24 7-10) 5 days #14 tabs lidocaine 5 % topical patch 1 patch topical DAILY PRN pain #30 05/22/24 (Lidoderm) ea naproxen 500 mg tablet 500 mg PO BID PRN pain 10 days #20 05/22/24 tabs Allergies Allergy/AdvReac Type Severity Reaction Status Date / Time No Known Allergies Allergy Verified 06/19/24 14:50 [No Known Allergies*] Review of Systems Constitutional: Constitutional: Reports no additional constitutional complaints, Denies chills, Denies fever(s) and Denies night sweats Eyes: Eyes: Reports no additional eye complaints, Denies blurry vision, Denies change in vision, Denies diplopia, Denies eye discharge, Denies loss of vision and Denies eye pain ENT: Denies dizziness Cardiovascular: Cardiovascular: Reports no additional cardiovascular complaints, Denies chest pain, Denies lightheadedness, Denies Loss of Consciousness and Denies dyspnea Respiratory: Respiratory: Reports no additional respiratory complaints and Denies dyspnea Gastrointestinal: Gastrointestinal: Reports no additional gastrointestinal complaints, Denies abdominal pain, Denies melena, Denies hematochezia, Denies change in bowel habits and Denies change in stool character Genitourinary: Genitourinary: Denies hematuria, Denies urinary frequency, Denies dysuria, Denies urinary incontinence, Denies urinary hesitancy and Denies urinary urgency Musculoskeletal: Musculoskeletal: Reports no additional musculoskeletal complaints, Denies numbness and Denies tingling Comments: left great toe pain Neurologic: Denies dizziness, Denies loss of vision, Denies numbness and Denies tingling Psychiatric: Psychiatric: Reports no additional psychiatric complaints Endocrine: Endocrine: Reports no additional endocrine complaints Hematologic/Lymphatic: Hematologic/Lymphatic: Reports no additional hematologic/lymphatic complaints Allergic/Immunologic: Allergic/Immunologic: Reports no additional allergic/immunologic complaints PMFSH Past Medical History Attestation statement: The following information was validated with the patient. Source: old records reviewed and nursing notes reviewed Social History Social History Advance Directives: No Advance Directives Information Provided: Yes Physical Exam ED Vital Signs: Vital Signs - 24 hr 06/19/24 14:49 Temperature 98.5 F Pulse Rate 64 Respiratory Rate 18 Blood Pressure 118/78 Pulse Oximetry 97 Oxygen Delivery Method Room Air BMI result Body Mass Index 32.0 Const General: cooperative, no acute distress, alert and awake Nutritional Appearance: well nourished Orientation/consciousness: patient oriented x3 Limitations: no limitations HENMT Head: Yes normal to inspection and Yes atraumatic Ears: hearing grossly normal bilaterally and external ears normal General nose exam: Normal external nose present, no nasal discharge noted and no epistaxis Face and sinus: Yes normal facial exam, No abrasion and No laceration Mouth: Normal oral and palatal mucosa present, no drooling and no muffled voice Eyes General: appearance normal, both eyes and all related structures Periorbital: periorbital findings normal Eyelids: Yes eyelids normal Conjunctivae: conjunctivae normal Pupils: Equal, round and reactive pupils present EOM: EOMs intact bilaterally Neck Neck: Yes normal visual inspection, Yes full ROM and Yes no lymphadenopathy Chest Chest palpation & inspection: normal inspection of the chest Resp Effort & Inspection: normal respiratory effort and able to speak in complete sentences GI Inspection: Yes normal to inspection Neuro General: patient oriented x3, moves all extremities and CN's II-XI intact bilaterally Cranial nerves: Yes Equal, round and reactive pupils present Cognition (Neuro): normal cognition Extrem Other: bruising present to the dorsal left great toe pain with palpation of the left great toe General: Yes full ROM and Yes capillary refill normal Psych Appearance: grossly normal Mental Status: mental status grossly normal Affect: normal affect Attitude: cooperative Thought process: Normal thought process present Thought content: Normal thought content present Insight: Good insight present (Psych) Course Course Course Narrative: RME performed by Gwen Soliz PA-C. Patient is a 29 year old assigned fe male at presenting to the emergency department with left great toe pain. Patient states that yesterday, on 06/18/2024, she got upset and kicked a door - injuring her left great toe. Detailed physical exam and review of systems are deferred to the manager primary. Imaging ordered. Patient placed back in the waiting room pending room availability and results. Procedures Orthopedic Splinting/Casting Injury #1: Side: left Lower Extremity Injury Location: toe (great toe) Lower Extremity Immobilizer: boot orthosis Other Orthopedic Equipment: crutches Medical Decision Making Medical Decision Making MDM Narrative: Patient is a 29 year old assigned female at with no reported medical history presenting to the emergency department today with left great toe pain. Patient's physical exam was as noted in the physical exam portion of this note. Patient's left foot x-ray showed a left great toe fracture. I explained my physical exam findings as well as all test results to the patient. I answered all questions asked by the patient. Patient's foot was placed in a short walking boot, without incident. Patient's PMS was intact prior to and after boot placement. Patient was given crutches with crutch instructions. I stressed the importance of the patient taking her medication as directed (either prescribed or as the over the counter packaging recommends). I stressed the importance of the patient following up with her primary care provider and an orthopedic provider. I stressed the importance of the patient returning to the emergency department immediately if her symptoms were to worsen or if she were to develop any dizziness, shortness of breath, difficulty breathing, chest pain, blurry vision, loss of vision, nausea, vomiting, abdominal pain, fever, chills, back pain, or any other complaints. Patient verbalized agreement and understanding with this treatment plan and discharge. Differential Diagnosis Differential Diagnoses: The differential diagnosis associated with the presentation includes Left great toe fracture Admission/Observation Consideration of admission/observation: Escalation of care including admission/o bservation considered Patient would have been admitted to the hospital had her work up had any findings where hospital admission was appropriate and her clinical presentation warranted hospital admission. Independent Interpretation I performed an independent interpretation of an: Plain X-Ray Interpretation: My interpretation is in agreement with the radiologist's impression of this imaging study. EXAMINATION: XR FOOT, LEFT CLINICAL INFORMATION: great toe injury, pain COMPARISON: None available. TECHNIQUE: AP, lateral, and oblique views of the left foot. FINDINGS: The nondisplaced fracture proximal phalanx first digit with minimal soft tissue swelling. No additional bony abnormality seen. The soft tissues are normal. XR/XR foot LT min 3V IMPRESSION: Nondisplaced oblique fracture proximal phalanx first digit. Mild soft tissue swelling. Electronically signed by: Cr Conteh MD 06/19/2024 03:17 PM [facility] Dictated By: Cr Conteh MD Signed By: Electronically signed by Cr Conteh MD 06/19/24 [id number] Radiology Impression Discussion of test interpretation with radiology: I have reviewed the radiologist's reading. Discharge Plan Discharge Clinical Impression: Fracture of toe Patient Disposition: Home, Self-Care Instructions: Crutch Instructions (ED), Toe Fracture (ED), Walking Boot (ED) Additional Instructions: Follow up with your primary care provider and an orthopedic provider. You may remove your boot when sleeping and to shower. Return to the emergency department immediately if your symptoms worsen or if you develop any dizziness, shortness of breath, difficulty breathing, chest pain, blurry vision, loss of vision, nausea, vomiting, abdominal pain, fever, chills, back pain, or any other complaints. Prescriptions: No Action sulfamethoxazole-trimethoprim [Bactrim DS] 800-160 mg tablet 1 tab PO BID Qty: 5 0RF phenazopyridine 100 mg tablet 100 mg PO TID Qty: 6 0RF amoxicillin 500 mg capsule 500 mg PO BID Qty: 20 0RF cyclobenzaprine 10 mg tablet 10 mg PO TID PRN (Reason: pain, muscle spasm) Qty: 15 0RF erythromycin 5 mg/gram (0.5 %) ointment 0.5 inch ophthalmic (eye) TID 7 Days Qty: 3.5 0RF tramadol 50 mg tablet 50 mg PO TID PRN (Reason: pain) 3 Days Qty: 10 0RF Rx Instructions: Patient may request partial fill acetaminophen [Tylenol Extra Strength] 500 mg tablet 500 mg PO Q6H PRN (Reason: fever or pain) Qty: 14 0RF lidocaine [Lidoderm] 5 % adhesive patch,medicated 1 patch topical DAILY MDD remove after 12 hours PRN (Reason: pain) Qty: 30 0RF Rx Instructions: leave on most painful area for up to 12 hrs naproxen 500 mg tablet 500 mg PO BID PRN (Reason: pain) 10 Days Qty: 20 0RF cyclobenzaprine 5 mg tablet 5 mg PO Q8H PRN (Reason: pain (scale score 7-10)) 5 Days Qty: 14 0RF Referrals: [facility] [Provider Group] (Call to establish and follow up with an orthopedic provider. ) Radames Joe MD [Primary Care Provider] - Print Language: Syrian
[2024-06-19 16:41] VITALS: BP 118/78; PULSE 64; RESP 18; TEMP 36.9; O2SAT 97
--- OUTSIDE RECORDS SUMMARY | 2024-06-19 18:43 | XMS_ITS | Clinical Summary ---
Author Organization [facility] it Address [address] [place] [address] Care Team Providers Care Merchant Mill Utility Worker Name Role Phone Tara Edwards MD Primary Care Provider [phone] Surgical History Surgery Date Site/Laterality Comments CHOLECYSTECTOMY 2012 PROCEDURE: NC CHOLECYSTECTOMY Medical History Medical History Date Comments [...] drink = 0.6 oz pur e alcohol) Comments Unknown Sex and Gender Information Value Date Recorded Sex Assigned at Not on file Legal Sex Female 5:51 PM EST Gender Identity Not on file Sexual Orientation Not on file Obstetrics History Plan of Treatment Health Maintenance Due Date Last Done Comments Cervical Cancer Screening: Pap Smear 2014 DTaP,Tdap,and Td Vaccines (8 - Td or Tdap) 08/18/2017 08/19/2007, 08/27/2004, 08/01/1997, Additional history exists COVID-19 Vaccine ( season) 2023 Influenza Vaccine (#1) 2023 Hepatitis [...] on patient's age to complete this topic Meningococcal B Vacine Aged Out No lo nger eligible based on patient's age to complete [...] age to complete this topic Care Teams Merchant Mill Utility Worker Relationship Specialty Start Date End Date Tara Edwards MD PCP - General Internal Medicine 11/07/17
--- OUTSIDE RECORDS SUMMARY | 2024-06-19 18:43 | XMS_ITS | Clinical Summary ---
Author Organization [facility] Address [address] [place] [address] Care Team Providers Care Body And Fender Mechanic Name Role Phone Tara Edwards MD Primary Care Provider [phone] Allergies Active Allergy Reactions Criticality Noted Date [...] age to complete this topic Care Teams Body And Fender Mechanic Relationship Specialty Start Date End Date Tara Edwards MD PCP - General Internal Medicine 11/07/17
== END 2024-06-19 16:10 | disposition home or self-care (01) ==
PROVIDERS: Emergency Provider Emergency Medicine; PCP Internal Medicine
DX: S92.415A Nondisplaced fracture of proximal phalanx of left great toe, initial encounter for closed fracture (principal); W22.09XA Striking against other stationary object, initial encounter; Y93.9 Activity, unspecified; Y92.9 Unspecified place or not applicable; Y99.9 Unspecified external cause status
CPT/HCPCS: 73630; 99282; 99283

== ENCOUNTER → 2024-06-19 14:50 | Outpatient (BNV) | payer OTHER, SELFPAY | PROVIDERS: Emergency Provider Emergency Medicine; PCP Internal Medicine; Visit Provider Radiology Diagnostic Radiology | DX: M79.675 Pain in left toe(s) (principal) | CPT/HCPCS: 73630 ==

== ENCOUNTER 2024-07-06 08:13 | Outpatient (REF) | payer OTHER, SELFPAY ==
--- NOTE | ~2024-07-06 | XR_ITS ---
EXAMINATION: XR FOOT 1-2 VIEWS LEFT HISTORY: M79.673 - Pain in unspecified foot COMPARISON: Comparison is made with the prior examination dated 06/19/2024. FINDINGS: Three views of the left foot are submitted. Osseous mineralization is normal. Again seen is a nondisplaced fracture of the proximal phalanx of the great toe. The fracture line remains visible. The joint spaces are preserved. The soft tissues are unremarkable. XR/XR foot LT 2V IMPRESSION: Nondisplaced fracture of the proximal phalanx of the great toe without change. Electronically signed by: Rogelio Guzman MD 07/07/2024 08:25 AM EDT
== END 2024-07-06 08:14 | disposition home or self-care (01) ==
LOC: HO.HOSX 08:13
PROVIDERS: Visit Provider Physician Assistant
DX: M79.672 Pain in left foot (principal); S92.412A Displaced fracture of proximal phalanx of left great toe, initial encounter for closed fracture; W22.09XA Striking against other stationary object, initial encounter; Y93.9 Activity, unspecified; Y92.9 Unspecified place or not applicable; Y99.9 Unspecified external cause status
CPT/HCPCS: 73620; 99202

== ENCOUNTER 2024-07-06 11:11 | Outpatient (AMB) | payer OTHER, SELFPAY ==
--- NOTE | 2024-07-06 11:37 | A.OFFVIS_ITS ---
Vital Signs 07/06/24 11:40 Height 5 ft 6 in Weight 198 lb BMI 32.0 Intake Visit Reasons: FC-Fracture of toe, left big toe-DOI 06/18/24 Intake Note: Daphney is a 29 year old female whop resents today for a evaluation of her left great toe fx, DOI 06/18/24. Patient was placed in a walking boot at the ED. Patient states she kicked a door out of frustrating with her left foot, injuring her left great toe. She mentions her pain is worse when she is bending her toes. IMPRESSION: Nondisplaced oblique fracture proximal phalanx first digit. Mild soft tissue swelling. Allergies No Known Allergies [No Known Allergies*] Allergy (Verified 07/06/24 11:39) HPI HPI FC-Fracture of toe, left big toe-DOI 06/18/24: Details: Ms. Portillo is a 29-year-old female who presents to the office today for left great toe fracture that occurred on 06/18/2024. Patient reports that she kicked a door out of anger and felt immediate pain. On 05/22/2024 she presented to the emergency department where x-rays were obtained and she was found to have a proximal phalanx fracture of the left great toe. She was placed into a walking boot instructed to follow up with orthopedics outpatient for further evaluation and treatment. [facility] Social History (Updated 07/06/24 @ 11:40 by Dariela Quevedo) Alcohol intake: never Patient Tobacco Use Status: Never used Tobacco Current occupational status: unemployed Review of Systems Const All systems reviewed & are unremarkable except as noted in HPI and below Physical Exam Vital Signs: BMI result Body Mass Index 32.0 Const General: cooperative, healthy appearing and no acute distress Resp Effort & Inspection: normal respiratory effort and able to speak in complete sentences Cardio Rate: regular rate Peripheral pulses: Peripheral pulses 2+ throughout Skin Lesions: no lesions Rashes: no rashes Extrem Other: Left great toe normal to inspection no ecchymosis erythema or edema. No nail bed disruption. Able to perform flexion and extension - EHL intact. Sensation is intact. Cap refill is brisk. Assessment & Plan Assessment & Plan (1) Fracture of left great toe: Code(s): S92.402A - Displaced unspecified fracture of left great toe, initial encounter for closed fracture Category: Medical Plan Ms. Portillo is a 29-year-old female who presents to the office today for left great toe fracture that occurred on 06/18/2024. Patient reports that she kicked a door out of anger and felt immediate pain. On 05/22/2024 she presented to the emergency department where x-rays were obtained and she was found to have a proximal phalanx fracture of the left great toe. She was placed into a walking boot instructed to follow up with orthopedics outpatient for further evaluation and treatment. Patient has already weaned out of the walking boot. Educated the patient to wear supportive sneakers. Her pain has steadily declined. She will perform activities to tolerance. I did educate the patient this could take up to 6 weeks for full healing. Patient understands and accepts. She will follow up p.r.n., sooner if needed. X-rays of the left foot which were obtained while in the office today and were reviewed by me, Ariela Brooke PA-C, revealed left great toe fracture at the proximal phalanx with routine healing. Orders: Orders XR foot LT 2V Today M79.673 - Pain in unspecified foot Coding Level of Care Code New Pt Level 4 (71630) Diagnoses Fracture of left great toe S92.402A
[2024-07-06 11:40] VITALS: BMI 32.0
== END 2024-07-06 11:40 | disposition home or self-care (01) ==
LOC: HO.HOS 11:11
PROVIDERS: PCP Internal Medicine; Visit Provider Physician Assistant
DX: S92.402A Displaced unspecified fracture of left great toe, initial encounter for closed fracture (principal)
CPT/HCPCS: 99203

== ENCOUNTER → 2024-07-06 11:25 | Outpatient (BNV) | payer OTHER, SELFPAY | PROVIDERS: Visit Provider Radiology Diagnostic Radiology | DX: S92.415A Nondisplaced fracture of proximal phalanx of left great toe, initial encounter for closed fracture (principal) | CPT/HCPCS: 73620 ==

== ENCOUNTER 2024-09-07 08:41 | Emergency (ER) | payer OTHER, SELFPAY ==
--- NOTE | ~2024-09-07 | XR_ITS ---
EXAMINATION: XR LUMBOSACRAL SPINE CLINICAL INFORMATION: midline tenderness, hx herniated disc COMPARISON: None available. TECHNIQUE: Three views of the lumbosacral spine. FINDINGS: Decreased intervertebral disc height at L5-S1. Mild S-shaped curvature of the thoracolumbar spine. No acute cortical disruption or gross malalignment. Vascular clips right upper quadrant abdomen likely prior cholecystectomy. XR/XR lumbar spine 2-3V IMPRESSION: No acute fracture or listhesis. Spondylosis L5-S1. Electronically signed by: Vik Cesar MD 09/07/2024 09:29 AM EDT
--- NOTE | ~2024-09-07 | XR_ITS ---
EXAMINATION: XR CHEST 2 VIEWS HISTORY: fatigue COMPARISON: There are no prior studies for comparison. FINDINGS: PA and lateral views of the chest are submitted. The lungs are expanded and clear. There is no pleural effusion, pneumothorax, or pulmonary vascular congestion. The heart is normal in size. The bones are intact. XR/XR chest 2V IMPRESSION: Normal examination of the chest. Electronically signed by: Rogelio Guzman MD 09/07/2024 10:49 AM EDT
[2024-09-07 08:49] VITALS: BP 112/63; PULSE 65; RESP 18; TEMP 36.6; O2SAT 97; BMI 31.1
--- NOTE | 2024-09-07 08:52 | ED_ITS ---
HPI - General Adult General Chief complaint: General Medical Stated complaint: Body aches, fatigue 4 days Time Seen by Provider: 09/07/24 08:51 Source: patient, RN notes reviewed and old records reviewed Mode of arrival: ambulatory Limitations: no limitations History of Present Illness ED Provider: Imani KRAUS narrative: Patient is a 29-year-old female with history of herniated disc at unknown level presenting to the emergency department with complaint of lower back pain radiating down bilateral lower extremities for the past 4 days. Also complains of fatigue and moderate headache. Denies worst headache of life, sudden onset, not worse with standing or in the morning. Denies cough, shortness of breath, sore throat, ear pain. Denies dysuria, urinary frequency, hematuria or any other urinary symptoms. Denies fever. Denies history of cancer IV drug use. Denies saddle anesthesia or bowel or bladder incontinence. Denies any fall or other injury. MD complaint: back pain, fatigue Onset (ago): day(s) Related Data Previous Rx's ?Medication ?Instructions ?Recorded phenazopyridine 100 mg tablet 100 mg PO TID 6 doses #6 tabs 10/27/21 sulfamethoxazole 800 1 tab PO BID #5 tabs 10/27/21 mg-trimethoprim 160 mg tablet (Bactrim DS) amoxicillin 500 mg capsule 500 mg PO BID #20 caps 02/27/23 cyclobenzaprine 10 mg tablet 10 mg PO TID PRN pain, muscle 04/27/23 spasm #15 tabs erythromycin 5 mg/gram (0.5 %) eye 0.5 inch ophthalmic (eye) TID 7 04/27/23 ointment days #3.5 grams tramadol 50 mg tablet 50 mg PO TID PRN pain 3 days #10 04/27/23 tabs acetaminophen 500 mg tablet 500 mg PO Q6H PRN fever or pain 05/22/24 (Tylenol Extra Strength) #14 tabs cyclobenzaprine 5 mg tablet 5 mg PO Q8H PRN pain (scale score 05/22/24 7-10) 5 days #14 tabs lidocaine 5 % topical patch 1 patch topical DAILY PRN pain #30 05/22/24 (Lidoderm) ea naproxen 500 mg tablet 500 mg PO BID PRN pain 10 days #20 05/22/24 tabs lidocaine 5 % topical patch 1 patch topical DAILY #15 ea 09/07/24 naproxen 500 mg tablet 500 mg PO BID #14 tabs 09/07/24 Allergies Allergy/AdvReac Type Severity Reaction Status Date / Time No Known Allergies Allergy Verified 09/07/24 08:51 [No Known Allergies*] Review of Systems 2 Review of Systems: As per HPI Yes all other systems are reviewed and are negative Constitutional: Constitutional: Reports as per HPI [facility] Social History Social History (Updated 07/06/24 @ 11:40 by Dariela Quevedo) Alcohol intake: never Patient Tobacco Use Status: Never used Tobacco Advance Directives: No Advance Directives Information Provided: Yes Current occupational status: unemployed Physical Exam ED Vital Signs: Vital Signs - 24 hr 09/07/24 08:49 Temperature 97.8 F Pulse Rate 65 Respiratory Rate 18 Blood Pressure 112/63 Pulse Oximetry 97 Oxygen Delivery Method Room Air BMI result Body Mass Index 31.1 Vital signs have been reviewed and appear to be correct. Blood pressure normal. Heart rate normal. Respiratory rate normal. Temperature normal. Oxygen saturation normal. Const General: cooperative, healthy appearing and no acute distress Orientation/consciousness: oriented to person, oriented to place, oriented to time and patient oriented x3 Limitations: no limitations HENMT Head: Yes normocephalic and Yes atraumatic Ears: external ears normal General nose exam: Normal external nose present Face and sinus: Yes face symmetric Mouth: oropharynx normal and moist mucous membranes Throat: Yes uvula midline Eyes Pupils: Equal, round and reactive pupils present Neck Neck: Yes normal visual inspection and Yes supple Resp Effort & Inspection: normal respiratory effort and able to speak in complete sentences Auscultation: clear to auscultation bilaterally Cardio Rate: regular rate Rhythm: regular rhythm Heart sounds: S1 normal heart sound present and S2 normal heart sound present GI Palpation (GI): Soft to palpation and nontender Auscultation: normoactive bowel sounds General: Yes no CVA tenderness Back/Spine/Pelvis Back: no CVA tenderness Thoracic/Lumbar Spine: thoracic and lumbar spine normal to inspection, thoraco- lumbar ROM normal, pain with thoraco-lumbar ROM, paraspinal muscle tenderness on the right in the mid lumbar, No thoracic spinal tenderness, lumbar spinal tenderness at L1, at L2, at L3, at L4 and at L5 and straight leg raise positive bilateral at 30 degrees Skin General skin exam: elasticity normal and turgor normal Neuro General: oriented to person, oriented to place, oriented to time, patient oriented x3, gait normal, tone normal, moves all extremities, Normal light touch and pain sensation, no focal motor deficits, CN's II-XI intact bilaterally and deep tendon reflexes 2+ bilaterally Cranial nerves: Yes Equal, round and reactive pupils present Cognition (Neuro): normal cognition Motor exam (neuro): 5/5 motor strength present throughout, Normal motor muscle tone present throughout and Motor abnormalities not present Sensory Exam: Normal double simultaneous stimulation for sensation Extrem General: Yes full ROM, Yes no pedal edema and Yes no calf tenderness Psych Mental Status: mental status grossly normal Affect: normal affect Thought process: Normal thought process present Medical Decision Making Medical Decision Making [facility] Narrative: Patient is a 29-year-old female with history of herniated disc at unknown level presenting to the emergency department with complaint of lower back pain radiating down bilateral lower extremities for the past 4 days. On exam patient is awake, A+Ox3, VS WNL, afebrile, normal neurological exam without focal deficits, physical exam findings as above. Given reported symptoms and physical exam findings, initial differential includes but is not limited to initial differential includes lumbar strain, lumbar radiculopathy, degenerative disc disease, disc herniation, spinal stenosis, spondylosis, UTI, viral illness. Less likely vertebral fracture. Do not suspect malignancy/mass, SEA, cauda equina/cord compression. Labs notable for leukopenia, thrombocytopenia, ANC of 1, no significant electrolyte abnormalities. Patient denies known history of HIV. No evidence of infection on UA. Strep and viral swabs negative. Lumbar x-ray notable for spondylosis of L5/S1, no acute fracture. Chest x-ray without evidence of pneumonia. My interpretation is in agreement with the radiologist's interpretation. Case discussed with attending, Dr. Ghosh, who recommends adding HIV panel, tick born panel, and CXR, and repeat labs on Wednesday. Patient does not have a PCP, advised she can return to the ED on Wednesday for recheck of labs. Patient will be notified of any positive results of HIV/tick panel. Return precautions discussed with patient at bedside and noted on discharge paperwork. Patient verbalized understanding of and agreement with plan. Differential Diagnosis Differential Diagnoses: The differential diagnosis associated with the presentation includes As per MDM Admission/Observation Consideration of admission/observation: Escalation of care including admission/observation considered Patient would have been admitted to the hospital had their work up had any findings where hospital admission was appropriate and their clinical presentation warranted hospital admission. Lab Data [facility] Lab Attestation statement: I reviewed the patient's lab results. As per [facility] 09/07/24 09:27 09/07/24 09:27 Labs: Lab Results 09/07/24 09/07/24 Range/Units 09:27 09:28 WBC 2.1 L (4.8-10.8) X10*3/uL RBC 4.60 (4.20-5.50) X10*6/uL Hgb 13.4 (12.0-16.0) g/dl Hct 38.4 (37.0-47.0) % MCV 83.5 (80.0-98.0) fL MCH 29.1 (27.0-33.0) pg MCHC 34.9 (31.0-35.0) g/dl RDW 12.1 (11.0-16.0) % Plt Count 129 L (160-400) X10*3/uL MPV 11.4 (9.4-12.3) fL Immature Gran % (Auto) 0.0 (0.0-0.4) % Neut % (Auto) 48.1 (45-73) % Lymph % (Auto) 28.6 (20-40) % [place] % (Auto) 14.1 H (2-11) % Eos % (Auto) 8.7 H (0-4) % Baso % (Auto) 0.5 (0-2) % Lymph # (Auto) 0.6 L (1.2-4.9) X10*3/uL [place] # (Auto) 0.3 (0.1-1.2) X10*3/uL Eos # (Auto) 0.2 (0.0-0.4) X10*3/uL Baso # (Auto) 0.0 (0.0-0.2) X10*3/uL Abs Immat Gran (auto) 0.00 (0.00-0.03) X10*3/uL Absolute Neuts (auto) 1.0 L (2.0-8.3) x10*3/uL Absolute Nucleated RBC 0.000 (0.0-0.012) X10*3/uL Nucleated RBC % (auto) 0.0 (0.0-0.2) /100WBC Smear Tech's Comments VERIFIED Sodium 140 (135-145) mmol/L Potassium 4.2 (3.3-5.1) mmol/L Chloride 105 (96-108) mmol/L Carbon Dioxide 29 (22-29) mmol/L Anion Gap 10 L (12-20) BUN 7 L (9-16) mg/dL Creatinine 0.53 (0.5-1.4) mg/dL Estim Creat Clear Calc 177.3 Estimated GFR > 60 Random Glucose 100 (60-115) mg/dL Calcium 9.4 D (8.4-10.2) mg/dL Beta HCG, Quant < 2 mIU/mL Urine Color Yellow Urine Appearance Clear Urine pH 7.5 (5.0-9.0) Ur Specific Talent 1.010 (1.005-1.025) Urine Protein Negative (Neg-Trace) mg/dL Urine Glucose (UA) Negative (Negative) mg/dL Urine Ketones Negative (Negative) mg/dL Urine Blood Negative (Negative) Urine Nitrite Negative (Negative) Ur Leukocyte Esterase Negative (Negative) Influenza Type A (PCR) NEGATIVE (Negative) Influenza Type B (PCR) NEGATIVE (Negative) RSV RNA Qual (PCR) NEGATIVE (Negative) SARS-CoV-2 RNA (RT-PCR) NEGATIVE (Negative) S. pyogenes GrpA MAHAMED Negative (Negative) Independent Interpretation I performed an independent interpretation of an: Plain X-Ray Interpretation: Lumbar x-ray notable for spondylosis of L5/S1, no acute fracture. Radiology Impression Discussion of test interpretation with radiology: I have reviewed the radiologist's reading. Radiologist Impression: XR/XR lumbar spine 2-3V IMPRESSION: No acute fracture or listhesis. Spondylosis L5-S1. External Record Review External record reviewed: Inpatient record, Office record and Outpatient record Prescription Management I considered prescription management with: Pain Medication Discharge Plan Discharge Clinical Impression: Lumbar spondylosis, Fatigue, Abnormal laboratory test result Patient Disposition: Home, Self-Care Instructions: Osteoarthritis (DC), Fatigue (ED) Additional Instructions: You were evaluated in the emergency department today for lower back pain and fatigue. Your x-ray showed arthritis in your lumbar spine. You are being prescribed medications for pain, use these as prescribed. You labs were abnormal today, including a low white blood cell count and low platelets. This could be related to a viral illness. You tested negative for flu, Covid, and RSV. Your urine did not appear infected. Your chest x-ray did not show evidence of pneumonia. You were tested for HIV and tick born illnesses, you will receive a call if anything is positive. RETURN TO THE EMERGENCY DEPARTMENT WEDNESDAY FOR REPEAT LABS. RETURN TO THE EMERGENCY DEPARTMENT SOONER IF YOU DEVELOP FEVER, SHORTNESS OF BREATH OR DIFFICULTY BREATHING, VOMITING AND DIARRHEA, CHILLS/BODY ACHES. Prescriptions: New naproxen 500 mg tablet 500 mg PO BID Qty: 14 0RF lidocaine 5 % adhesive patch,medicated 1 patch topical DAILY Qty: 15 0RF Rx Instructions: leave on most painful area for up to 12 hrs No Action sulfamethoxazole-trimethoprim [Bactrim DS] 800-160 mg tablet 1 tab PO BID Qty: 5 0RF phenazopyridine 100 mg tablet 100 mg PO TID Qty: 6 0RF amoxicillin 500 mg capsule 500 mg PO BID Qty: 20 0RF cyclobenzaprine 10 mg tablet 10 mg PO TID PRN (Reason: pain, muscle spasm) Qty: 15 0RF erythromycin 5 mg/gram (0.5 %) ointment 0.5 inch ophthalmic (eye) TID 7 Days Qty: 3.5 0RF tramadol 50 mg tablet 50 mg PO TID PRN (Reason: pain) 3 Days Qty: 10 0RF Rx Instructions: Patient may request partial fill acetaminophen [Tylenol Extra Strength] 500 mg tablet 500 mg PO Q6H PRN (Reason: fever or pain) Qty: 14 0RF lidocaine [Lidoderm] 5 % adhesive patch,medicated 1 patch topical DAILY MDD remove after 12 hours PRN (Reason: pain) Qty: 30 0RF Rx Instructions: leave on most painful area for up to 12 hrs naproxen 500 mg tablet 500 mg PO BID PRN (Reason: pain) 10 Days Qty: 20 0RF cyclobenzaprine 5 mg tablet 5 mg PO Q8H PRN (Reason: pain (scale score 7-10)) 5 Days Qty: 14 0RF Print Language: Wolof
--- OUTSIDE RECORDS SUMMARY | 2024-09-07 09:13 | XMS_ITS | Clinical Summary ---
Author Organization [facility] Address [address] [place] [id number] Care Team Providers Care Respite Worker Name Role Phone Tara Edwards MD Primary Care Provider [phone] Allergies Active Allergy Reactions Criticality Noted Date [...] age to complete this topic Care Teams Respite Worker Relationship Specialty Start Date End Date Tara Edwards MD PCP - General Internal Medicine 11/07/17
--- OUTSIDE RECORDS SUMMARY | 2024-09-07 09:13 | XMS_ITS | Clinical Summary ---
Author Organization [facility] it Address [address] [place] [address] Care Team Providers Care Financial Recording Clerk Name Role Phone Tara Edwards MD Primary Care Provider Surgical History Surgery Date Site/Laterality Comments CHOLECYSTECTOMY 2012 PROCEDURE: [place] CHOLECYSTECTOMY Medical History Medical History Date Comments [...] COVID-19 Vaccine ( season) 2023 Influenza Vaccine (Season Ended) 2024 Hepatitis B Vaccines Completed 1993, 1993, 1993 HIB Vaccines Completed 04/27/1994, 07/19, 1993, Additional history exists IPV Vaccines Completed 08/01/1997, 08/17, 04/27/1994, Additional history exists MMR Vaccines Completed 08/01/1997, 04/27/1994 HPV Vaccines Completed 02/21/2008, 11/2007, 08/19/2007 Meningococcal ACWY Vaccine Completed 08/28/2011, Hepatitis A Vaccines Aged Out No long er eligible based on patient's age to complete this topic Meningococcal B Vaccine Aged Out No l onger eligible based on patient's age to complete [...] age to complete this topic Care Teams Financial Recording Clerk Relationship Specialty Start Date End Date Tara Edwards MD PCP - General Internal Medicine 11/07/17
[2024-09-07 09:37] LABS: Basophils Percent Auto 0.5 % (0-2); Eosinophils Absolute Auto 0.2 X10*3/uL (0.0-0.4); Eosinophils Percent Auto 8.7 % (0-4); Hematocrit 38.4 % (37.0-47.0); Hemoglobin 13.4 g/dl (12.0-16.0); Lymphocytes Absolute Auto 0.6 X10*3/uL (1.2-4.9); Lymphocytes Percent Auto 28.6 % (20-40); MANUAL DIFF FLAG SCAN; Mean Corpuscular HGB Conc 34.9 g/dl (31.0-35.0); Mean Corpuscular Hemoglobin 29.1 pg (27.0-33.0); Mean Corpuscular Volume 83.5 fL (80.0-98.0); Mean Platelet Volume 11.4 fL (9.4-12.3); Monocytes Absolute Auto 0.3 X10*3/uL (0.1-1.2); Monocytes Percent Auto 14.1 % (2-11); Neutrophils Percent Auto 48.1 % (45-73); Platelet Count 129 X10*3/uL (160-400); Red Cell Distribution Width 12.1 % (11.0-16.0); SCAN SMEAR FLAG 1
[2024-09-07 09:38] LABS: Appearance Urine Clear; Color Urine Yellow; Glucose Urine UA Negative (Negative); Leukocyte Esterase Urine Negative (Negative); Nitrite Urine Negative (Negative); PH 7.5 (5.0-9.0); Urine Blood Negative (Negative); Urine Ketones Negative (Negative); Urine Protein Negative (Neg-Trace)
[2024-09-07 09:39] LABS: White Blood Count 2.1 X10*3/uL (4.8-10.8)
[2024-09-07 09:56] LABS: IDNOW Serial# 55D5AD1C; Strep A Nucleic Acid Negative (Negative)
[2024-09-07 09:58] LABS: SLIDE REVIEW VERIFIED
[2024-09-07 09:59] LABS: Anion Gap 10 (12-20); Blood Urea Nitrogen 7 mg/dL (9-16); Calcium 9.4 mg/dL (8.4-10.2); Carbon Dioxide 29 mmol/L (22-29); Chloride 105 mmol/L (96-108); Creatinine Clr Calc Pharmacy 177.3; Estimated Glomerular Filt Rate > 60; Glucose Random 100 mg/dL (60-115); Potassium 4.2 mmol/L (3.3-5.1); Sodium 140 mmol/L (135-145)
[2024-09-07 10:06] LABS: HCG Quantitative < 2 mIU/mL
[2024-09-07 10:27] LABS: Influenza A PCR NEGATIVE (Negative); Influenza B PCR NEGATIVE (Negative); Resp Syncy Virus RNA Qual PCR NEGATIVE (Negative); SARS COV2 PCR INHOUSE NEGATIVE (Negative)
[2024-09-07 11:29] VITALS: BP 112/63; PULSE 65; RESP 18; TEMP 36.6; O2SAT 97
[2024-09-07 12:01] LABS: HIV AB/AG Nonreactive (Nonreactive); HIV Num 1 0.12 S/CO (0.00-0.99)
[2024-09-12 02:08] LABS: A. Phagocytphilium DNA,RT-PCR NOT DETECTED (NOT DETECTED); Babesia Microti DNA, RT-PCR NOT DETECTED (NOT DETECTED); Borrelia Miyamotoi,DNA RT-PCR NOT DETECTED (NOT DETECTED); E.Chaffeensis DNA RT-PCR NOT DETECTED (NOT DETECTED); Lyme(Borrelia ssp)DNA RT-PCR NOT DETECTED (NOT DETECTED)
== END 2024-09-07 11:30 | disposition home or self-care (01) ==
PROVIDERS: Registered Nurse Emergency; Emergency Provider Emergency Medicine
DX: M47.816 Spondylosis without myelopathy or radiculopathy, lumbar region (principal); R53.83 Other fatigue; D72.829 Elevated white blood cell count, unspecified; D69.6 Thrombocytopenia, unspecified; M54.50 Low back pain, unspecified; Z03.818 Encounter for observation for suspected exposure to other biological agents ruled out
CPT/HCPCS: 0241U; 36415; 71046; 72100; 80048; 81003; 84702; 85025; 87389; 87468; 87469; 87478; 87484; 87651; 87798; 99282; 99283

== ENCOUNTER → 2024-09-07 09:06 | Outpatient (BNV) | payer OTHER, SELFPAY | PROVIDERS: Emergency Provider Emergency Medicine; Visit Provider Radiology Diagnostic Radiology | DX: M47.817 Spondylosis without myelopathy or radiculopathy, lumbosacral region (principal); R53.83 Other fatigue | CPT/HCPCS: 71046; 72100 ==

== ENCOUNTER 2024-09-08 10:20 | Emergency (ER) | payer OTHER, SELFPAY ==
--- NOTE | ~2024-09-08 | CT_ITS ---
EXAMINATION: CT HEAD WITHOUT CONTRAST CLINICAL INFORMATION: headache COMPARISON: None available. TECHNIQUE: Contiguous axial imaging was performed from the skull base to vertex without intravenous administration of contrast. This CT examination was performed using dose optimization techniques as appropriate, variously including the following: *Automated exposure control *Adjustment of mA and/or kV according to patient size (this includes techniques or standardized protocols for targeted exams where dose is matched to indication/reason for exam; i.e. extremities or head) *Use of iterative reconstruction technique DLP: 593 mGy-cm FINDINGS: No acute intracranial hemorrhage, mass effect, midline shift, hydrocephalus or herniation. Gaitan-white matter differentiation is normal. Posterior cranial fossa contents demonstrated no acute intracranial hemorrhage or mass effect. Sellar/suprasellar region demonstrated no gross masses. Craniocervical junction demonstrates normal position of the cerebellar tonsils. No air-fluid levels in the paranasal sinuses. Tympanic cavities and mastoid cells are aerated. 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 CT/CT head/brain wo IV con IMPRESSION: No acute intracranial hemorrhage or acute brain abnormality by CT. Electronically signed by: Vik Cesar MD 09/08/2024 03:12 PM EDT
[2024-09-08 10:22] VITALS: BP 124/70; PULSE 68; RESP 18; TEMP 37.1; O2SAT 98; BMI 31.0
--- OUTSIDE RECORDS SUMMARY | 2024-09-08 11:41 | XMS_ITS | Clinical Summary ---
Author Organization [facility] Address [address] [place] [id number] Care Team Providers Care Agronomy Supervisor Name Role Phone Tara Edwards MD Primary Care Provider [phone] Allergies Active Allergy Reactions Criticality Noted Date [...] age to complete this topic Care Teams Agronomy Supervisor Relationship Specialty Start Date End Date Tara Edwards MD PCP - General Internal Medicine 11/07/17
--- NOTE | 2024-09-08 13:04 | ED_ITS ---
HPI - General Adult General Chief complaint: General Medical Stated complaint: Body Aches Time Seen by Provider: 09/08/24 13:04 Source: patient Mode of arrival: ambulatory Limitations: no limitations History of Present Illness ED Provider: HPI narrative: Patient was seen here yesterday, body aches headache fatigued, had fairly involved workup yesterday sandwich have reacted and she is coming back next week as well for repeat blood work and tick-borne illness panel is still pending, no drug use no alcohol use nonsmoker, no fevers or chills reported she reports frontal headache, this was a slow onset headache without vision changes nausea and vomiting or weakness in upper or lower extremities. Related Data Previous Rx's ?Medication ?Instructions ?Recorded phenazopyridine 100 mg tablet 100 mg PO TID 6 doses #6 tabs 10/27/21 sulfamethoxazole 800 1 tab PO BID #5 tabs 10/27/21 mg-trimethoprim 160 mg tablet (Bactrim DS) amoxicillin 500 mg capsule 500 mg PO BID #20 caps 02/27/23 cyclobenzaprine 10 mg tablet 10 mg PO TID PRN pain, muscle 04/27/23 spasm #15 tabs erythromycin 5 mg/gram (0.5 %) eye 0.5 inch ophthalmic (eye) TID 7 04/27/23 ointment days #3.5 grams tramadol 50 mg tablet 50 mg PO TID PRN pain 3 days #10 04/27/23 tabs acetaminophen 500 mg tablet 500 mg PO Q6H PRN fever or pain 05/22/24 (Tylenol Extra Strength) #14 tabs cyclobenzaprine 5 mg tablet 5 mg PO Q8H PRN pain (scale score 05/22/24 7-10) 5 days #14 tabs lidocaine 5 % topical patch 1 patch topical DAILY PRN pain #30 05/22/24 (Lidoderm) ea naproxen 500 mg tablet 500 mg PO BID PRN pain 10 days #20 05/22/24 tabs lidocaine 5 % topical patch 1 patch topical DAILY #15 ea 09/07/24 naproxen 500 mg tablet 500 mg PO BID #14 tabs 09/07/24 [id number]-spkdifrvldlsw-gitwycua 1 cap PO Q8H PRN headache 3 days 09/08/24 50 mg-300 mg-40 mg capsule #10 caps (Fioricet) Allergies Allergy/AdvReac Type Severity Reaction Status Date / Time No Known Allergies Allergy Verified 09/08/24 10:22 [No Known Allergies*] Review of Systems Review of Systems: Yes all other systems are reviewed and are negative [facility] Social History Social History (Updated 07/06/24 @ 11:40 by Dariela Quevedo) Alcohol intake: never Patient Tobacco Use Status: Never used Tobacco Advance Directives: No Advance Directives Information Provided: No Current occupational status: unemployed Physical Exam ED Vital Signs: Vital Signs - 24 hr 09/08/24 10:22 Temperature 98.7 F Pulse Rate 68 Respiratory Rate 18 Blood Pressure 124/70 Pulse Oximetry 98 Oxygen Delivery Method Room Air BMI result Body Mass Index 31.0 Medications Administered Discontinued Medications Generic Name Dose Route Start Last Admin Trade Name Freq PRN Reason Stop Dose Admin Acetaminophen/Butalbital/Caffeine 1 tab 09/08/24 13:20 09/08/24 13:47 Butalb/Acetamin/Caff 50/325/40 Tablet PO 09/08/24 13:21 1 tab ONCE ONE Administration Ketorolac Tromethamine 15 mg 09/08/24 13:20 09/08/24 13:47 Ketorolac Tromethamine 15 Mg/Ml Vial IM 09/08/24 13:21 15 mg ONCE ONE Administration Lidocaine HCl 20 ml 09/08/24 13:20 09/08/24 13:39 Lidocaine Hcl 2 % 20 Ml Vial INFILTRATI 09/08/24 13:21 Not Given ONCE ONE Lidocaine HCl 5 ml 09/08/24 13:45 09/08/24 13:45 Lidocaine Hcl 1 % Mpf 30 Ml Vial INTRAARTIC 09/08/24 13:46 Not Given ONCE ONE Lidocaine HCl 30 ml 09/08/24 13:45 09/08/24 13:48 Lidocaine Hcl 1 % Mpf 30 Ml Vial INTRAARTIC 09/08/24 13:46 30 ml ONCE ONE Administration Medical Decision Making Medical Decision Making [facility] Narrative: 13:24 patient evaluated with headache body aches, overall she is well-appearing, no fevers or chills vital signs are stable, ENT exam neurologic exam, cardiopulmonary examination unremarkable HIV panel negative, tick-borne panel still pending, she does have significant suboccipital tenderness and right trapezius tenderness, I offered trigger point injections, verbal consent obtained, see my procedure note, we will also obtain CT of the brain just to make sure there is no underlying masses, but my suspicion for that is low, we will order Toradol Fioricet, otherwise anticipating discharge Trigger point injection procedure note; 3 areas of tenderness identified along suboccipital area on the right and 2 areas along her right trapezium, area was cleaned with alcohol, and injected with 2% lidocaine without epinephrine using a small needle, patient tolerated procedure well, there was no complications, this was a verbal consent with the understanding that any time we will inject something in the body there may be a risk of introducing infection and bleeding. 15:18 patient re-evaluated, she has significantly improvement in her symptoms, we will discharge after her CT comes back read by radiologist but on my evaluation there are no masses or bleeding Differential Diagnosis Tension headache, occipital neuralgia, tick-borne illness, pneumonia, viral syndrome, subarachnoid hemorrhage, traumatic brain injury Admission/Observation Consideration of admission/observation: Escalation of care including admission/observation considered Lab Data [facility]DM Lab Attestation statement: I reviewed the patient's lab results. Radiology Impression Discussion of test interpretation with radiology: I have reviewed the radi ologist's reading. Radiologist Impression: CT brain no acute changes Discharge Plan Discharge Clinical Impression: Cervico-occipital neuralgia of right side Patient Disposition: Home, Self-Care Additional Instructions: I have discussed the workup with you that you have had already the tick panel still pending and you have had a plan per prior provider so please continue with that as well you coming back next week for recheck, I believe the headache symptoms you are experiencing have to do with some of the spasms around your neck, does not really explain your body aches and chills etc. take Fioricet, continue taking ibuprofen as needed, and as discussed I have reviewed her workup prior has been reassuring, H&E panel was negative, and CT of the brain done today has been unremarkable Prescriptions: New nvlxgjjibq-ejoqfalbgvirk-uanf [Fioricet] 50-300-40 mg capsule 1 cap PO Q8H PRN (Reason: headache) 3 Days Qty: 10 0RF No Action sulfamethoxazole-trimethoprim [Bactrim DS] 800-160 mg tablet 1 tab PO BID Qty: 5 0RF phenazopyridine 100 mg tablet 100 mg PO TID Qty: 6 0RF amoxicillin 500 mg capsule 500 mg PO BID Qty: 20 0RF cyclobenzaprine 10 mg tablet 10 mg PO TID PRN (Reason: pain, muscle spasm) Qty: 15 0RF erythromycin 5 mg/gram (0.5 %) ointment 0.5 inch ophthalmic (eye) TID 7 Days Qty: 3.5 0RF tramadol 50 mg tablet 50 mg PO TID PRN (Reason: pain) 3 Days Qty: 10 0RF Rx Instructions: Patient may request partial fill acetaminophen [Tylenol Extra Strength] 500 mg tablet 500 mg PO Q6H PRN (Reason: fever or pain) Qty: 14 0RF lidocaine [Lidoderm] 5 % adhesive patch,medicated 1 patch topical DAILY MDD remove after 12 hours PRN (Reason: pain) Qty: 30 0RF Rx Instructions: leave on most painful area for up to 12 hrs naproxen 500 mg tablet 500 mg PO BID PRN (Reason: pain) 10 Days Qty: 20 0RF cyclobenzaprine 5 mg tablet 5 mg PO Q8H PRN (Reason: pain (scale score 7-10)) 5 Days Qty: 14 0RF naproxen 500 mg tablet 500 mg PO BID Qty: 14 0RF lidocaine 5 % adhesive patch,medicated 1 patch topical DAILY Qty: 15 0RF Rx Instructions: leave on most painful area for up to 12 hrs Print Language: Slovak
[2024-09-08] MEDS: Butalb/Acetamin/Caff 50/325/40 TABLET 1 TAB PO (13:47)
[2024-09-08] MEDS: Ketorolac Tromethamine 15 MG/ML VIAL IM (13:47)
[2024-09-08] MEDS: Lidocaine HCl 1 % MPF 30 ML VIAL INTRAARTIC (13:48)
[2024-09-08 15:44] VITALS: BP 124/70; PULSE 68; RESP 18; TEMP 37.1; O2SAT 98
== END 2024-09-08 15:44 | disposition home or self-care (01) ==
PROVIDERS: Emergency Provider Emergency Medicine
DX: M54.81 Occipital neuralgia (principal); M79.10 Myalgia, unspecified site; R51.9 Headache, unspecified
CPT/HCPCS: 70450; 96372; 99283; 99284; J1885; J2003

== ENCOUNTER → 2024-09-08 13:23 | Outpatient (BNV) | payer OTHER, SELFPAY | PROVIDERS: Emergency Provider Emergency Medicine; Visit Provider Radiology Diagnostic Radiology | DX: R51.9 Headache, unspecified (principal) | CPT/HCPCS: 70450 ==

== ENCOUNTER 2024-09-11 17:24 | Emergency (ER) | payer OTHER, SELFPAY ==
[2024-09-11 17:28] VITALS: BP 124/72; PULSE 84; RESP 19; TEMP 36.6; O2SAT 98; BMI 31.3
--- NOTE | 2024-09-11 17:28 | ED_ITS ---
HPI - General Adult General Chief complaint: Recheck/Abnormal Lab/Rx Stated complaint: return from Fri/Sat to have labs redrawn Time Seen by Provider: 09/11/24 18:11 Source: patient, RN notes reviewed and old records reviewed Mode of arrival: ambulatory Limitations: no limitations History of Present Illness ED Provider: Fermin HPI narrative: 29-year-old female presents for evaluation of repeat labs. She was seen here over the weekend for body aches. She was found to have a mild leukopenia of 2.1. And a mild thrombocytopenia of [id number]. The remainder of your workup was largely unremarkable, she does have tick-borne disease panel still pending. She was negative for HIV She was encouraged to return for repeat labs The patient reports still feeling somewhat fatigued but her body aches have improved Related Data Previous Rx's ?Medication ?Instructions ?Recorded phenazopyridine 100 mg tablet 100 mg PO TID 6 doses #6 tabs 10/27/21 sulfamethoxazole 800 1 tab PO BID #5 tabs 10/27/21 mg-trimethoprim 160 mg tablet (Bactrim DS) amoxicillin 500 mg capsule 500 mg PO BID #20 caps 02/27/23 cyclobenzaprine 10 mg tablet 10 mg PO TID PRN pain, muscle 04/27/23 spasm #15 tabs erythromycin 5 mg/gram (0.5 %) eye 0.5 inch ophthalmic (eye) TID 7 04/27/23 ointment days #3.5 grams tramadol 50 mg tablet 50 mg PO TID PRN pain 3 days #10 04/27/23 tabs acetaminophen 500 mg tablet 500 mg PO Q6H PRN fever or pain 05/22/24 (Tylenol Extra Strength) #14 tabs cyclobenzaprine 5 mg tablet 5 mg PO Q8H PRN pain (scale score 05/22/24 7-10) 5 days #14 tabs lidocaine 5 % topical patch 1 patch topical DAILY PRN pain #30 05/22/24 (Lidoderm) ea naproxen 500 mg tablet 500 mg PO BID PRN pain 10 days #20 05/22/24 tabs lidocaine 5 % topical patch 1 patch topical DAILY #15 ea 09/07/24 naproxen 500 mg tablet 500 mg PO BID #14 tabs 09/07/24 gjogrlpinm-[id number]-ugnvywiu 1 cap PO Q8H PRN headache 3 days 09/08/24 50 mg-300 mg-40 mg capsule #10 caps (Fioricet) Allergies Allergy/AdvReac Type Severity Reaction Status Date / Time No Known Allergies Allergy Verified 09/11/24 17:29 [No Known Allergies*] Review of Systems 2 Constitutional: Constitutional: Reports body ache(s), Denies chills, Reports fatigue, Denies fever(s), Reports malaise and Denies night sweats Eyes: Eyes: Denies blurry vision ENT: Denies vertigo and Denies dizziness Cardiovascular: Cardiovascular: Denies chest pain, Denies chest pain at rest and Denies dyspnea Respiratory: Respiratory: Denies cough and Denies dyspnea Gastrointestinal: Gastrointestinal: Denies abdominal pain, Denies nausea and Denies vomiting Neurologic: Denies vertigo and Denies dizziness Endocrine: Endocrine: Reports fatigue PMFSH Social History Social History (Updated 07/06/24 @ 11:40 by Dariela Quevedo) Alcohol intake: never Patient Tobacco Use Status: Never used Tobacco Advance Directives: No Advance Directives Information Provided: No Do you have a plan to hurt others: No Plan Current occupational status: unemployed Physical Exam ED Vital Signs: Vital Signs - 24 hr 09/11/24 17:28 09/11/24 19:02 Temperature 98 F 98 F Pulse Rate 84 84 Respiratory Rate 19 19 Blood Pressure 124/72 124/72 Pulse Oximetry 98 98 Oxygen Delivery Method Room Air Room Air BMI result Body Mass Index 31.3 Const General: healthy appearing, comfortable, no acute distress, alert and awake Nutritional Appearance: well nourished Orientation/consciousness: patient oriented x3 [facility] Head: Yes normocephalic and Yes atraumatic Eyes Eyelids: Yes eyelids normal Conjunctivae: conjunctivae normal Sclerae: sclerae normal Corneas: corneas normal Pupils: Equal, round and reactive pupils present EOM: EOMs intact bilaterally Neck Neck: Yes full ROM Resp Effort & Inspection: normal respiratory effort, able to speak in complete sentences, no audible wheezes and not labored Auscultation: clear to auscultation bilaterally Cardio Rate: regular rate Rhythm: regular rhythm GI Inspection: No distended Palpation (GI): Soft to palpation, not firm, nontender, no guarding and not rigid Skin General skin exam: no rashes or lesions noted and elasticity normal Neuro General: patient oriented x3 Cranial nerves: Yes Equal, round and reactive pupils present and Yes Bilaterally intact EOM present Cognition (Neuro): normal cognition Extrem Other: Moving all extremities well without any obvious deformities Course Course Course Narrative: RME, this is a rapid medical exam performed by Marshal Christensen please refer to primary provider for complete H&P- 29-year-old female presents for evaluation of repeat labs. She was seen here last week and had a leukopenia of 2.1 which is an unclear etiology. She had HIV testing that was negative, chest x-ray unremarkable. She still has tick-borne disease panel pending. She is here for repeat labs which were ordered. Medical Decision Making Medical Decision Making [facility] Narrative: 29-year-old female who denies any known past medical history presents for evaluation of rechecking labs. She does continue to complain of body aches. Her leukopenia has improved from 2.1 up to 3.1, her platelet count is still somewhat low at [id number]. She has a large number of lymphocytes, eosinophilic count is improving. Chemistries are unremarkable. I reviewed the patient is serology, tick-borne panel in his still pending. I encouraged the patient to follow up with her primary doctor but given she has no active bleeding in his afebrile with normal vital signs, does not require any further emergent workup Differential Diagnosis Differential Diagnoses: The differential diagnosis associated with the presentation includes Viral syndrome Leukopenia ITB Thrombocytopenia Lab Data [facility] Lab Attestation statement: I reviewed the patient's lab results. As above 09/11/24 17:51 09/11/24 17:51 Labs: Lab Results 09/11/24 Range/Units 17:51 WBC 3.1 L (4.8-10.8) X10*3/uL RBC 4.66 (4.20-5.50) X10*6/uL Hgb 13.4 (12.0-16.0) g/dl Hct 38.8 (37.0-47.0) % MCV 83.3 (80.0-98.0) fL MCH 28.8 (27.0-33.0) pg MCHC 34.5 (31.0-35.0) g/dl RDW 11.8 (11.0-16.0) % Plt Count 114 L (160-400) X10*3/uL MPV 11.3 (9.4-12.3) fL Immature Gran % (Auto) 0.0 (0.0-0.4) % Neut % (Auto) 36.0 L (45-73) % Lymph % (Auto) 49.5 H (20-40) % [place] % (Auto) 9.7 (2-11) % Eos % (Auto) 4.5 H (0-4) % Baso % (Auto) 0.3 (0-2) % Lymph # (Auto) 1.5 (1.2-4.9) X10*3/uL [place] # (Auto) 0.3 (0.1-1.2) X10*3/uL Eos # (Auto) 0.1 (0.0-0.4) X10*3/uL Baso # (Auto) 0.0 (0.0-0.2) X10*3/uL Abs Immat Gran (auto) 0.00 (0.00-0.03) X10*3/uL Absolute Neuts (auto) 1.1 L (2.0-8.3) x10*3/uL Absolute Nucleated RBC 0.000 (0.0-0.012) X10*3/uL Nucleated RBC % (auto) 0.0 (0.0-0.2) /100WBC Smear Tech's Comments VERIFIED Sodium 139 (135-145) mmol/L Potassium 3.8 (3.3-5.1) mmol/L Chloride 103 (96-108) mmol/L Carbon Dioxide 29 (22-29) mmol/L Anion Gap 11 L (12-20) BUN 7 L (9-16) mg/dL Creatinine 0.55 (0.5-1.4) mg/dL Estim Creat Clear Calc 171.4 Estimated GFR > 60 Random Glucose 112 (60-115) mg/dL Calcium 9.3 (8.4-10.2) mg/dL Total Bilirubin 0.7 (0.0-1.0) mg/dL AST 16 (5-31) U/L ALT 10 (0-31) U/L Alkaline Phosphatase 56 (39-117) U/L Total Protein 7.5 (6.5-8.0) g/dL Albumin 4.4 (3.5-5.0) g/dL Lipase 6 L (8-78) U/L Discharge Plan Discharge Clinical Impression: Leukopenia Patient Disposition: Home, Self-Care Additional Instructions: Your tick-borne disease testing is still not resulted yet. We will call you with any positive results. Your white blood cell count is still low but improved from 2.1 up to 3.1. Your platelet count is still slightly low at [id number] These lab values can be seen in the setting of a virus It is important that you follow-up with your primary doctor, return for new or worsening symptoms Prescriptions: No Action sulfamethoxazole-trimethoprim [Bactrim DS] 800-160 mg tablet 1 tab PO BID Qty: 5 0RF phenazopyridine 100 mg tablet 100 mg PO TID Qty: 6 0RF cpsyvttbno-hnsdxjtcmqomq-qgdr [Fioricet] 50-300-40 mg capsule 1 cap PO Q8H PRN (Reason: headache) 3 Days Qty: 10 0RF amoxicillin 500 mg capsule 500 mg PO BID Qty: 20 0RF cyclobenzaprine 10 mg tablet 10 mg PO TID PRN (Reason: pain, muscle spasm) Qty: 15 0RF erythromycin 5 mg/gram (0.5 %) ointment 0.5 inch ophthalmic (eye) TID 7 Days Qty: 3.5 0RF tramadol 50 mg tablet 50 mg PO TID PRN (Reason: pain) 3 Days Qty: 10 0RF Rx Instructions: Patient may request partial fill acetaminophen [Tylenol Extra Strength] 500 mg tablet 500 mg PO Q6H PRN (Reason: fever or pain) Qty: 14 0RF lidocaine [Lidoderm] 5 % adhesive patch,medicated 1 patch topical DAILY MDD remove after 12 hours PRN (Reason: pain) Qty: 30 0RF Rx Instructions: leave on most painful area for up to 12 hrs naproxen 500 mg tablet 500 mg PO BID PRN (Reason: pain) 10 Days Qty: 20 0RF cyclobenzaprine 5 mg tablet 5 mg PO Q8H PRN (Reason: pain (scale score 7-10)) 5 Days Qty: 14 0RF naproxen 500 mg tablet 500 mg PO BID Qty: 14 0RF lidocaine 5 % adhesive patch,medicated 1 patch topical DAILY Qty: 15 0RF Rx Instructions: leave on most painful area for up to 12 hrs Interventions: ED Discharge Assessment Last Done: 09/11/24 19:02 Discharge Date/Time: 09/11/24 19:03 Print Language: Tajik
[2024-09-11 18:00] LABS: MANUAL DIFF FLAG SCAN; PLT CLUMP 1; SCAN SMEAR FLAG 1
[2024-09-11 18:02] LABS: Basophils Percent Auto 0.3 % (0-2); Eosinophils Absolute Auto 0.1 X10*3/uL (0.0-0.4); Eosinophils Percent Auto 4.5 % (0-4); Hematocrit 38.8 % (37.0-47.0); Hemoglobin 13.4 g/dl (12.0-16.0); Lymphocytes Absolute Auto 1.5 X10*3/uL (1.2-4.9); Lymphocytes Percent Auto 49.5 % (20-40); Mean Corpuscular HGB Conc 34.5 g/dl (31.0-35.0); Mean Corpuscular Hemoglobin 28.8 pg (27.0-33.0); Mean Corpuscular Volume 83.3 fL (80.0-98.0); Mean Platelet Volume 11.3 fL (9.4-12.3); Monocytes Absolute Auto 0.3 X10*3/uL (0.1-1.2); Monocytes Percent Auto 9.7 % (2-11); Neutrophils Absolute Auto 1.1 x10*3/uL (2.0-8.3); Red Blood Count 4.66 X10*6/uL (4.20-5.50); Red Cell Distribution Width 11.8 % (11.0-16.0)
[2024-09-11 18:13] LABS: Alanine Aminotransferase 10 U/L (0-31); Albumin Level 4.4 g/dL (3.5-5.0); Alkaline Phosphatase 56 U/L (39-117); Anion Gap 11 (12-20); Aspartate Amino Transferase 16 U/L (5-31); Bilirubin Total 0.7 mg/dL (0.0-1.0); Blood Urea Nitrogen 7 mg/dL (9-16); Calcium 9.3 mg/dL (8.4-10.2); Carbon Dioxide 29 mmol/L (22-29); Chloride 103 mmol/L (96-108); Creatinine Clr Calc Pharmacy 171.4; Estimated Glomerular Filt Rate > 60; Glucose Random 112 mg/dL (60-115); Lipase 6 U/L (8-78); Potassium 3.8 mmol/L (3.3-5.1); Sodium 139 mmol/L (135-145); Total Protein 7.5 g/dL (6.5-8.0)
[2024-09-11 18:42] LABS: White Blood Count 3.1 X10*3/uL (4.8-10.8)
[2024-09-11 18:43] LABS: Platelet Count 114 X10*3/uL (160-400); SLIDE REVIEW VERIFIED
[2024-09-11 19:02] VITALS: BP 124/72; PULSE 84; RESP 19; TEMP 36.6; O2SAT 98
== END 2024-09-11 19:03 | disposition home or self-care (01) ==
PROVIDERS: Physician Assistant; Emergency Provider Emergency Medicine
DX: D72.819 Decreased white blood cell count, unspecified (principal)
CPT/HCPCS: 36415; 80053; 83690; 85025; 99282; 99283